=== PATIENT | female | born 1980 | race Caucasian/White ===

== ENCOUNTER 2016-09-28 00:53 | Emergency (ER) | payer OTHER ==
[~2016-09-28] VITALS: Ht 175.3 cm; Wt 117.1 kg
[~2016-09-28 00:53] MED LIST: BUPR-79 PO; GABA800T PO; IBUP-1451 PO; LAMO200T38 PO
[2016-09-28 00:56] VITALS: TEMP 37.1; Ht 175.3 cm; Wt 117.1 kg
[2016-09-28] MEDS ORDERED: PROPARACAINE HCL 0.5% OP SOLN 15 ML BTL ONE (01:00)
[2016-09-28] MEDS ORDERED: CIPROFLOXACIN HCL 0.3% OP SOLN 2.5 ML BTL OP STA (01:18)
--- NOTE | 2016-09-28 01:26 | EMERGENCY ROOM VISIT NOTE ---
ED Visit Note First contact with patient: 01:01 CHIEF COMPLAINT: Eye pain HISTORY OF PRESENT ILLNESS: This 35 yo patient presents to the emergency department with friend complaining of pain in the left eye. There has been a constant moderate pain and irritation, redness and tearing in the eye. There is a mild blurring of vision at times and light bothers the eye. The vision has not been decreased over all. The patient does not wear contacts. The patient rates the pain as irritating and 5/10. The patient has not had previous injuries to this eye. Tetanus shot is up to date. REVIEW OF SYSTEMS: A 6 system review of systems was completed with positives and pertinent negatives listed in the HPI. ALLERGIES: Codeine MEDICATIONS: Reviewed PMH: Medical Problems: (1) Antisocial personality disorder Status: Chronic (2) Bipolar disorder Status: Chronic (3) Cannabis abuse Status: Chronic (4) Chronic back pain Status: Chronic (5) Depression Status: Chronic (6) Hysterectomy Status: Resolved (7) Nicotine abuse Status: Chronic (8) orthopedic surgery Status: Resolved (9) Seizure Status: Chronic (10) Seizure disorder Status: Chronic SOCIAL HISTORY: No drug use PHYSICAL EXAM: Vital Signs: Reviewed Nurse's notes, vital signs stable. Visual acuity reviewed from nursing. GENERAL: This is a pleasant female, in no acute distress, but who is uncomfortable from the eye problem. Well-developed well- nourished. EYES: The pupils are equal round and reactive to light and accommodation. EOMs are full and without tenderness. There is discharge of clear tears from the left eye which is injected. There is no foreign body visible under the eyelid even after lid eversion. Funduscopic exam reveals no hemorrhages, papilledema, or other abnormalities. No foreign body was seen embedded in the cornea under slit lamp exam. The cornea was clear and no hyphema was seen. Fluorescein uptake was observed with ultraviolet light significant for a corneal abrasion 3:00. EMERGENCY DEPARTMENT COURSE: I examined the patient. Alcaine 2 drops were placed in the patient's left eye. A slit lamp exam was performed as above. Ciloxan two drops was placed in the patient's left eye. Patient was advised to follow-up with ophthalmology if symptoms persist or for worsening signs or symptoms the next few days or here in the ER sooner for worsening signs or symptoms or as needed. The patient was discharged home in good condition. DIAGNOSIS: Corneal abrasion of the left eye DISCHARGE INSTRUCTIONS AND TREATMENT: Use Ciloxin two drops in left eye every two hours while awake for two days; then two drops every four hours while awake for 5 days. Use Ibuprofen 600 mg or Tylenol 500 mg every 6 hrs as needed for moderate pain. Oxycodone (OxyIR) 5mg: Take 1-2 pills every four hours for breakthrough pain. Avoid alcohol, operating machinery or dangerous equipment, working on ladders or roofs, DRIVING, or situations where being under the influence may be dangerous. It is recommended to use an [id number] stool softener such as Colace, 100mg twice daily while taking this medication to avoid constipation. Follow-up with ophthalmology in 2-3 days for a recheck. Return to the ED for increasing pain or changes in vision. Problem List Medical Problems: (1) Antisocial personality disorder Status: Chronic (2) Bipolar disorder Status: Chronic (3) Cannabis abuse Status: Chronic (4) Chronic back pain Status: Chronic (5) Depression Status: Chronic (6) Hysterectomy Status: Resolved (7) Nicotine abuse Status: Chronic (8) orthopedic surgery Status: Resolved (9) Seizure Status: Chronic (10) Seizure disorder Status: Chronic Current/Historical Medications Scheduled Bupropion (Wellbutrin Sr), 150 MG PO QAM Gabapentin (Neurontin), 800 MG PO TID Ibuprofen Tab (Motrin), 800 MG PO TID Lamotrigine (Lamictal), 200 MG PO DAILY Allergies Coded Allergies: Codeine (Verified Allergy, Intermediate, COULDN'T BREATHE, FINGERS SWELL, 04/28/16) 01/20/13: has percocet in past without problem Vital Signs Date Time Temp Pulse Resp B/P Pulse Ox O2 Delivery O2 Flow Rate FiO2 09/28/16 00:56 37.1 95 18 130/93 97 Room Air Departure Information Referrals No Doctor, Assigned (PCP) Patient Instructions [facility]
[2016-09-28] MEDS ORDERED: OXYCODONE IR HOME PACK PO ONE (01:30)
[2016-09-28 01:39] VITALS: BP 124/89; PULSE 91; O2SAT 98
[2016-12-14] MEDS ORDERED: MTHL PO (09:51)
== END 2016-09-28 01:40 | disposition home or self-care (01) ==
LOC: C.EDB 00:54
DX: S05.02XA Injury of conjunctiva and corneal abrasion without foreign body, left eye, initial encounter (principal); X58.XXXA Exposure to other specified factors, initial encounter; G40.909 Epilepsy, unspecified, not intractable, without status epilepticus; F31.9 Bipolar disorder, unspecified; Z90.710 Acquired absence of both cervix and uterus; Z98.890 Other specified postprocedural states; Z79.899 Other long term (current) drug therapy

== ENCOUNTER 2016-11-05 09:23 | Emergency (ER) | payer OTHER ==
[~2016-11-05] VITALS: Ht 177.8 cm; Wt 121.1 kg
[2016-11-05 09:33] VITALS: TEMP 36.7; Ht 177.8 cm; Wt 121.1 kg
--- NOTE | 2016-11-05 09:47 | EMERGENCY ROOM VISIT NOTE ---
History Report prepared by Keshia: Fabian Zacarias Under the Supervision of: Dr. Herber Cortez M.D. First contact with patient: 09:38 Chief Complaint: ILLNESS Stated Complaint: BODY ACHES, DIZZY, CHILLS/SWEATS, LETHARGIC History of Present Illness The patient is a 35 year old female who presents to the Emergency Room with complaints of a persistent illness that started a week ago. The patient states that both herself and her started getting a similar illness at the same time. Her symptoms include tiredness, body aches, and a runny nose. Her thinks they may have Lyme Disease, as they do live in the [facility], but the patient thinks it probably is not Lyme Disease. The patient says that she has not felt this way since her stomach flu many years ago. She denies any fevers or abdominal pain. She did not get her flu shot, and she does smoke cigarettes. The patient says that she had a urinary tract infection recently but was not put on antibiotics. She takes ibuprofen for chronic back pain. Source of History: patient Onset: A week ago Position: other (global - illness) Timing: other (persistent) Associated Symptoms: + fatigue, No abdominal pain, No fevers Note: Associated symptoms: Body aches, runny nose. Review of Systems See HPI for pertinent positives & negatives. A total of 10 systems reviewed and were otherwise negative. Past Medical & Surgical Medical Problems: (1) Antisocial personality disorder (2) Bipolar disorder (3) Cannabis abuse (4) Chronic back pain (5) Depression (6) Hysterectomy (7) Nicotine abuse (8) orthopedic surgery (9) Seizure (10) Seizure disorder Family History FH: depression FH: suicide Social History Smoking Status: Current Every Day Smoker Alcohol Use: none Drug Use: heroin Marital Status: Housing Status: lives with family Occupation Status: employed Current/Historical Medications Scheduled Gabapentin (Neurontin), 800 MG PO TID Lamotrigine (Lamictal), 200 MG PO DAILY Methadone HCl (Methadone HCl), 43 MG PO DAILY Allergies Coded Allergies: Codeine (Verified Allergy, Intermediate, COULDN'T BREATHE, FINGERS SWELL, 11/05/16) 01/20/13: has percocet in past without problem Physical Exam Vital Signs Date Time Temp Pulse Resp B/P Pulse Ox O2 Delivery O2 Flow Rate FiO2 11/05/16 11:25 74 16 117/75 99 11/05/16 09:33 36.7 83 18 159/92 93 Room Air Physical Exam GENERAL: Patient is well appearing and in no acute distress. HEENT: No acute trauma, normocephalic atraumatic, mucous membranes moist, no nasal congestion, no scleral icterus. NECK: No stridor, no adenopathy, no meningismus, trachea is midline. LUNGS: No dyspnea. Clear to auscultation and equal bilaterally. No wheeze, no rhonchi. HEART: Regular rate and rhythm. No murmurs, rubs, gallops appreciated. ABDOMEN: Soft, nontender, bowel sounds positive, no masses appreciated, no peritonitis. BACK: No midline tenderness, no CVA tenderness EXTREMITIES: Normal motion all extremities, no cyanosis, no edema. NEUROLOGIC: Alert and oriented, no acute motor or sensory deficits, no focal weakness, cranial nerves grossly intact. SKIN: No rash, no jaundice, no diaphoresis. Medical Decision & Procedures Laboratory Results 11/05/16 09:50 Red Blood Count 4.58, Mean Corpuscular Volume 87.6, Mean Corpuscular Hemoglobin 29.0, Mean Corpuscular Hemoglobin Concent 33.2, Mean Platelet Volume 12.3, Neutrophils (%) (Auto) 64.2, Lymphocytes (%) (Auto) 23.8, Monocytes (%) (Auto) 6.8, Eosinophils (%) (Auto) 4.7, Basophils (%) (Auto) 0.2, Neutrophils # (Auto) 5.61, Lymphocytes # (Auto) 2.08, Monocytes # (Auto) 0.59, Eosinophils # (Auto) 0.41, Basophils # (Auto) 0.02 11/05/16 09:50 Test 11/05/16 09:50 White Blood Count 8.74 K/uL (4.8-10.8) Red Blood Count 4.58 M/uL (4.2-5.4) Hemoglobin 13.3 g/dL (12.0-16.0) Hematocrit 40.1 % (37-47) Mean Corpuscular Volume 87.6 fL (80-100) Mean Corpuscular Hemoglobin 29.0 pg (25-34) Mean Corpuscular Hemoglobin Concent 33.2 g/dl (32-36) Platelet Count 177 K/uL (130-400) Mean Platelet Volume 12.3 fL (7.4-10.4) Neutrophils (%) (Auto) 64.2 % Lymphocytes (%) (Auto) 23.8 % Monocytes (%) (Auto) 6.8 % Eosinophils (%) (Auto) 4.7 % Basophils (%) (Auto) 0.2 % Neutrophils # (Auto) 5.61 K/uL (1.4-6.5) Lymphocytes # (Auto) 2.08 K/uL (1.2-3.4) Monocytes # (Auto) 0.59 K/uL (0.11-0.59) Eosinophils # (Auto) 0.41 K/uL (0-0.5) Basophils # (Auto) 0.02 K/uL (0-0.2) RDW Standard Deviation 44.7 fL (36.4-46.3) RDW Coefficient of Variation 13.9 % (11.5-14.5) Immature Granulocyte % (Auto) 0.3 % Immature Granulocyte # (Auto) 0.03 K/uL (0.00-0.02) Urine Color YELLOW Urine Appearance CLEAR (CLEAR) Urine pH 8.0 (4.5-7.5) Urine Specific [place] 1.018 (1.000-1.030) Urine Protein NEG (NEG) Urine Glucose (UA) NEG (NEG) Urine Ketones NEG (NEG) Urine Occult Blood NEG (NEG) Urine Nitrite NEG (NEG) Urine Bilirubin NEG (NEG) Urine Urobilinogen NEG (NEG) Urine Leukocyte Esterase NEG (NEG) Urine WBC (Auto) 0 /hpf (0-5) Urine RBC (Auto) 0-4 /hpf (0-4) Urine Hyaline Casts (Auto) 0 /lpf (0-5) Urine Epithelial Cells (Auto) 5-10 /lpf (0-5) Urine Bacteria (Auto) NEG (NEG) Urine Test NEG (NEG) Anion Gap 9.0 mmol/L (3-11) Est Creatinine Clear Calc Drug Dose 146.9 ml/min Estimated GFR () 117.6 Estimated GFR (Non- 101.4 BUN/Creatinine Ratio 17.3 (10-20) Calcium Level 8.5 mg/dl (8.5-10.1) Lyme Disease IgG Antibody NEG (NEG) Lyme Disease IgM Antibody NEG (NEG) Laboratory results as reviewed by me. ED Course 0940: The patient was evaluated in room B2. A complete history and physical exam was performed. 1114: Reevaluated the patient and she is resting comfortably. Discussed results and discharge instructions: She verbalized understanding and agreement. The patient is ready for discharge. Medical Decision Differential: Sepsis, Infectious (UTI/Pneumonia/Meningitis/etc), Metabolic/ Electrolyte Abnormality, Cardiac, Hepatic, Endocrine, Toxicologic, Neurologic, amongst other pathologies entertained. 35 yr old female with multiple vague complaints arrives with primary issues of being concerned she has lyme disease. Symptoms much more consistent with flu- like illness. No meningitis by exam and she is not septic. Lyme negative (as is significant other's). Labs unremarkable and ua clear. She has significant other with identical symptoms. Discussed typical viral course and symptoms for which to monitor. Impression Primary Impression: Fatigue Additional Impression: Acute viral syndrome Scribe Attestation The scribe's documentation has been prepared under my direction and personally reviewed by me in its entirety. I confirm that the note above accurately reflects all work, treatment, procedures, and medical decision making performed by me. Departure Information Dispostion Home / Self-Care Referrals No Doctor, Assigned (PCP) Primary Care Provider Patient Instructions My [facility] Additional Instructions You have been examined and treated today on an emergency basis only. This is not a substitute for, or an effort to provide, complete comprehensive medical care. It is impossible to recognize and treat all injuries or illnesses in a single emergency department visit. It is therefore important that you follow up closely with your Primary Physician or [facility]. Call as soon as possible for an appointment so you can review all labs, imaging and other testing that you had. Return to Emergency Department, call 911 or seek immediate medical attention if you feel your symptoms are worsening. Problem Qualifiers Primary Impression: Fatigue Encounter type: initial encounter
[2016-11-05 10:17] LABS: BASO % 0.2 %; BASO ABS # 0.02 K/uL (0-0.2); COMPLETE YES; EOS % 4.7 %; HEMATOCRIT 40.1 % (37-47); IG% 0.3 %; LYMPH % 23.8 %; LYMPH ABS # 2.08 K/uL (1.2-3.4); MEAN CELL VOLUME 87.6 fL (80-100); MEAN CORPUSCULAR HGB CONC 33.2 g/dl (32-36); MEAN PLATELET VOLUME 12.3 fL (7.4-10.4); MONO % 6.8 %; NEUT % 64.2 %; PLATELET COUNT 177 K/uL (130-400); RED BLOOD COUNT 4.58 M/uL (4.2-5.4); WHITE BLOOD COUNT 8.74 K/uL (4.8-10.8)
[2016-11-05 10:25] LABS: URINE APPEARANCE CLEAR (CLEAR); URINE BILIRUBIN NEG (NEG); URINE COLOR YELLOW; URINE NITRITE NEG (NEG); URINE SPECIFIC GRAVITY 1.018 (1.000-1.030); UROBILINOGEN NEG (NEG); ZZUR CULT IF INDIC CLEAN CATCH NO
[2016-11-05 10:26] LABS: MANUAL MICROSCOPIC REQUIRED? NO; REVIEW REQ? NO
[2016-11-05 11:04] LABS: LYME DISEASE AB IGG NEG (NEG)
[2016-11-05 11:07] LABS: LYME DISEASE AB IGM NEG (NEG)
[2016-11-05 11:08] LABS: BUN/CREATININE RATIO 17.3 (10-20); CALCIUM 8.5 mg/dl (8.5-10.1); CREATININE 0.77 mg/dl (0.60-1.20); POTASSIUM 4.5 mmol/L (3.5-5.1)
[2016-11-05 11:25] VITALS: BP 117/75; PULSE 74; O2SAT 99
[2016-12-14] MEDS ORDERED: MTHL PO (09:51)
== END 2016-11-05 11:26 | disposition home or self-care (01) ==
LOC: C.EDB 09:26
DX: R53.83 Other fatigue (principal); B34.9 Viral infection, unspecified; F60.2 Antisocial personality disorder; F12.10 Cannabis abuse, uncomplicated; M54.9 Dorsalgia, unspecified; G89.29 Other chronic pain; F32.9 Major depressive disorder, single episode, unspecified; G40.909 Epilepsy, unspecified, not intractable, without status epilepticus; F17.210 Nicotine dependence, cigarettes, uncomplicated; Z79.899 Other long term (current) drug therapy

== ENCOUNTER → 2016-11-07 | Outpatient (CLI) | payer OTHER ==
[~2016-11-07] MED LIST changes: +AMOX875T PO; -BUPR-79 PO; +CEPH500C PO; +DOCU100C31 PO; +IBUP-1428 PO; -IBUP-1451 PO; +METH10SO PO; +MTHL PO; +ONDA8TAB62 SL; +OXYC-57 PO; +OXYC1TAB3 PO
--- NOTE | 2016-11-07 09:47 | DIAGNOSTIC IMAGING REPORT ---
RIGHT FOOT MIN 3 VIEWS ROUTINE CLINICAL HISTORY: M79.674 Pain of right great toe Right pain COMPARISON: None DISCUSSION: Moderate degenerative change first metatarsophalangeal joint. Interphalangeal joints otherwise are unremarkable. Subtalar joint appears to be intact. There is no significant heel spur. IMPRESSION: Moderate degenerative change first metatarsophalangeal joint. Otherwise negative study Electronically signed by: Rory Bowman M.D. 11/07/2016 9:45 AM Dictated Date/Time: 11/07/2016 9:45 AM
[2016-11-07 10:16] LABS: BASO % 0.3 %; BASO ABS # 0.02 K/uL (0-0.2); COMPLETE YES; EOS % 6.1 %; HEMATOCRIT 41.7 % (37-47); IG% 0.3 %; LYMPH % 24.4 %; LYMPH ABS # 1.69 K/uL (1.2-3.4); MEAN CELL VOLUME 88.3 fL (80-100); MEAN CORPUSCULAR HGB CONC 32.9 g/dl (32-36); MEAN PLATELET VOLUME 12.6 fL (7.4-10.4); MONO % 6.4 %; NEUT % 62.5 %; PLATELET COUNT 186 K/uL (130-400); RED BLOOD COUNT 4.72 M/uL (4.2-5.4); WHITE BLOOD COUNT 6.92 K/uL (4.8-10.8)
[2016-11-07 12:40] LABS: CALCIUM 9.1 mg/dl (8.5-10.1)
[2016-11-07 12:44] LABS: ALT/SGPT 31 U/L (12-78); BLOOD UREA NITROGEN 16 mg/dl (7-18); BUN/CREATININE RATIO 17.8 (10-20); CARBON DIOXIDE 28 mmol/L (21-32); CHLORIDE 105 mmol/L (98-107); CHOLESTEROL 191 mg/dl (0-200); CREATININE 0.89 mg/dl (0.60-1.20); GLUCOSE 91 mg/dl (70-99); POTASSIUM 4.3 mmol/L (3.5-5.1); SODIUM 139 mmol/L (136-145); TRIGLYCERIDES 67 mg/dl (0-150); URIC ACID 5.4 mg/dl (2.6-7.2); VERY LOW DENSITY LIPOPROT CALC 13 mg/dl
[2016-11-07 12:49] LABS: ALB/GLOB RATIO 1.1 (0.9-2); ALKALINE PHOSPHATASE 67 U/L (45-117); AST/SGOT 19 U/L (15-37); CHOLESTEROL/HDL RATIO 2.9; HDL CHOLESTEROL 67 mg/dl; LDL CHOLESTEROL CALCULATED 111 mg/dl
== END | disposition home or self-care (01) ==
LOC: C.LAB1850 09:14
PROVIDERS: ATTEND Physician Assistant
DX: Z00.00 Encounter for general adult medical examination without abnormal findings (principal); M79.674 Pain in right toe(s); M19.071 Primary osteoarthritis, right ankle and foot

== ENCOUNTER 2016-12-14 17:44 | Emergency (ER) | payer OTHER ==
[~2016-12-14] VITALS: Ht 177.8 cm; Wt 129.7 kg
[~2016-12-14 17:44] MED LIST changes: -AMOX875T PO; -CEPH500C PO; -DOCU100C31 PO; -IBUP-1428 PO; -METH10SO PO; -ONDA8TAB62 SL; -OXYC-57 PO; -OXYC1TAB3 PO
[2016-12-14 17:53] VITALS: BP 136/90; PULSE 94; TEMP 36.8; O2SAT 94; Ht 177.8 cm; Wt 129.7 kg
[2016-12-14] MEDS ORDERED: AMOX875T PO (18:06)
[2016-12-14] MEDS ORDERED: NORCO 5/325MG HOME PACK PO ONE (18:15)
[2016-12-14] MEDS ORDERED: AMOXICIL/CLAVU 875MG HOME PACK PO ONE (18:15)
--- NOTE | 2016-12-14 23:35 | EMERGENCY ROOM VISIT NOTE ---
ED Visit Note First contact with patient: 17:56 CHIEF COMPLAINT: Toothache HISTORY OF PRESENT ILLNESS: This 36 year old female patient presented to the emergency department with a progressive toothache for past 2 days after breaking a left upper molar. The pain is now steady and severe and radiates to the face. The patient does not yet a dentist appointment set up, but will be contacting her dentist on Friday after the hol. They rate their pain a 8/10 and the ibuprofen and Tylenol they have been taking has not relieved the pain. Denies facial swelling or fever. The patient denies any discharge from the mouth. REVIEW OF SYSTEMS: A 6 system review of systems was completed with positives and pertinent negatives listed in the HPI. ALLERGIES: Codeine, but does tolerate other narcotics MEDICATIONS: See EMR PMH: See EMR SOCIAL HISTORY: Lives locally PHYSICAL EXAM: Vitals are noted on the nurse's note and reviewed by myself. Vital signs stable. GENERAL: White female, in no acute distress, nondiaphoretic, well-developed well -nourished. Mouth: The left upper second molar fractured laterally and the gum is swollen and tender around it, without any discharge or signs of an abscess. The remainder of the pharynx and tonsils are without erythema, edema, or exudate. The airway is patent. There is no facial swelling, cervical or submandibular lymphadenopathy. The patient appears uncomfortable and in pain. The patient has overall fair dental hygiene. EARS: External auditory canals clear, tympanic membranes pearly hayes without erythema or effusion bilaterally. HEART: Regular rate and rhythm without murmur gallop or rub LUNG: Clear to auscultation bilateral ED COURSE: Physical exam and history were performed. Nursing notes and EMR were reviewed. The patient appears to have broken a tooth a few days ago, and has had slow and progressive pain around her gum and of the tooth. On examination the gum line is erythematous and edematous without obvious abscess. There is no airway concerns. The patient will be given a course of Augmentin and a home pack of Vicodin. She is confident that she can establish with her dentist after the hol, and I recommended that she perform this. The patient was otherwise invited back to the ER with any new, worsening , or concerning symptoms. Problem List Medical Problems: (1) Antisocial personality disorder Status: Chronic (2) Bipolar disorder Status: Chronic (3) Cannabis abuse Status: Chronic (4) Chronic back pain Status: Chronic (5) Depression Status: Chronic (6) Hysterectomy Status: Resolved (7) Nicotine abuse Status: Chronic (8) orthopedic surgery Status: Resolved (9) Seizure Status: Chronic (10) Seizure disorder Status: Chronic Current/Historical Medications Scheduled Amoxicillin & Pot Clavulanate (Augmentin 875-125 mg), 1 TAB PO BID Gabapentin (Neurontin), 800 MG PO TID Lamotrigine (Lamictal), 200 MG PO DAILY Methadone HCl (Methadone HCl), 20 MG PO DAILY Allergies Coded Allergies: Codeine (Verified Allergy, Intermediate, COULDN'T BREATHE, FINGERS SWELL, 11/05/16) 01/20/13: has percocet in past without problem Vital Signs Date Time Temp Pulse Resp B/P Pulse Ox O2 Delivery O2 Flow Rate FiO2 12/14/16 17:53 36.8 94 20 136/90 94 Room Air Medications Administered Medications (Trade) Dose Ordered Sig/[place] Route Start Time Stop Time Status Last Admin Dose Admin Amoxicillin/ Clavulanate Potassium (Augmentin 875MG Home Pack) 1 homepack UD ONCE PO 12/14/16 18:15 12/14/16 18:16 DC 12/14/16 18:15 1 HOMEPACK Acetaminophen/ Hydrocodone Bitart ([place] 5/325mg Home Pack) 1 homepack UD ONCE PO 12/14/16 18:15 12/14/16 18:16 DC 12/14/16 18:15 1 HOMEPACK Departure Information Impression Primary Impression: Broken tooth Dispostion Home / Self-Care Condition GOOD Prescriptions Amoxicillin & Pot Clavulanate (Augmentin 875-125 mg) 1 Tab Tab 1 TAB PO BID for 9 Days, #18 TAB Prov: Jamel Dubois PA-C 12/14/16 Forms HOME CARE DOCUMENTATION FORM, IMPORTANT VISIT INFORMATION Patient Instructions My [facility] Additional Instructions You were seen and evaluated today on an emergency basis only. This is not a substitute for, or an effort to provide, complete comprehensive medical care. It is not possible to recognize and treat all injuries or illnesses in a single emergency department visit. For this reason it is recommended that you followup with your dentist as soon as possible for definitive care. For baseline pain relief you may alternate ibuprofen and acetaminophen every 4 hours for pain control. Take 600 mg ibuprofen (Advil) and then 4 hours later take 1000 mg acetaminophen (Tylenol). Do not take more than 3000 mg acetaminophen in a single day. [place] (hydrocodone/acetaminophen) 5/325 mg (homepack) One pill by mouth every 6 hours as needed for worsening breakthrough pain. Do not drink or drive on [place]. This medication will likely make you tired. Do not take [place] and Tylenol at the same time as both contain acetaminophen. [place] may cause constipation. You may wish to take an [id number] stool softener like Colace if this occurs. Amoxicillin Clavulanate (Augmentin) 875mg: Take one pill twice daily for 10 total days for your infection. All antibiotics can cause diarrhea. If this occurs and you feel worse or it does not resolve in 1-2 days follow up with your doctor or return to the Emergency Department as this could be signs of serious underlying problems. Any medication can cause an allergic reaction, stop the pills immediately and return to the ER for rash, hives, breathing difficulties, or swelling. You are welcome to return to the emergency department anytime with new, worsening, or concerning symptoms.
== END 2016-12-14 18:23 | disposition home or self-care (01) ==
LOC: C.EDB 17:46 → C.EDD 18:23
DX: S02.5XXA Fracture of tooth (traumatic), initial encounter for closed fracture (principal); X58.XXXA Exposure to other specified factors, initial encounter; F60.2 Antisocial personality disorder; F31.9 Bipolar disorder, unspecified; F12.10 Cannabis abuse, uncomplicated; G89.29 Other chronic pain; M54.9 Dorsalgia, unspecified; F32.9 Major depressive disorder, single episode, unspecified; F17.200 Nicotine dependence, unspecified, uncomplicated; G40.909 Epilepsy, unspecified, not intractable, without status epilepticus; Z90.710 Acquired absence of both cervix and uterus

== ENCOUNTER 2017-02-06 16:33 | Emergency (ER) | payer OTHER ==
[~2017-02-06] VITALS: Ht 170.2 cm; Wt 116.0 kg
[~2017-02-06 16:33] MED LIST changes: -GABA800T PO; -LAMO200T38 PO
[2017-02-06 16:35] VITALS: TEMP 36.8; Ht 170.2 cm; Wt 116.0 kg
[2017-02-06] MEDS ORDERED: SODIUM CHLORIDE 0.9% 1000ML 1,000 ML IV ONE (16:57)
[2017-02-06] MEDS ORDERED: SODIUM CHLORIDE 0.9% 1000ML 1,000 ML IV STA (16:57)
--- NOTE | 2017-02-06 16:59 | EMERGENCY ROOM VISIT NOTE ---
History Report prepared by Keshia: Fabian Zacarias Under the Supervision of: Dr. Galen Robertson M.D. First contact with patient: 16:44 Chief Complaint: CONSTIPATION Stated Complaint: NO BM IN 2 WKS,STOMACH PAIN,NAUSEA,CANT URINATE Nursing Triage Summary: pt to the ED with 2 wk hx of not having a BM and a couple days ago could void fully. pt used a suppository yesterday had a Bm and can void fine now today History of Present Illness The patient is a 36 year old female who presents to the Emergency Room with complaints of persistent constipation that started 2 weeks ago. She says that several weeks, she started having a decreased appetite with abdominal fullness. The patient states that she has not eaten as much as usual for these last few weeks. She says that she then noticed that she hadn't had a bowel movement in a while, which is not too uncommon, as she is on Methadone, but she has never had anything this long before without a bowel movement. She notes that she typically has a bowel movement a few times per week. The patient's adds that the patient, yesterday morning, was unable to urinate, and was limping with low abdominal pain. The patient notes that she felt like the food was not digesting, and was instead sitting in her lower abdomen. She says that the pain was cramping and similar to bad period cramps. The patient states that she used a suppository a few hours later and was then able to have a bowel movement with a couple rock hard pieces, and immediately began to urinate. She adds that she has been having bilateral flank pain that radiates down into her vaginal area. The patient says she has not had any urinary symptoms today. She denies any new back pain, shortness of breath, cough, headaches, hematuria, leg pain, numbness , or weakness. The patient says that she just had her period a few days ago, which was not abnormal for her. Source of History: patient, spouse/significant other Onset: 2 weeks ago Position: other (global - constipation) Symptom Intensity: only 1 bowel movement in past 2 weeks Timing: other (persistent) Associated Symptoms: + abdominal pain (low), + urinary symptoms (yesterday, inability to urinate before having bowel movement), No headache, No cough, No SOB, No back pain (no new), No weakness, No numbness Note: Associated symptoms: Decreased appetite with abdominal fullness, flank pain, vaginal area pain. Denies leg pain or hematuria. Review of Systems See HPI for pertinent positives & negatives. A total of 10 systems reviewed and were otherwise negative. Past Medical & Surgical Medical Problems: (1) Antisocial personality disorder (2) Bipolar disorder (3) Cannabis abuse (4) Chronic back pain (5) Depression (6) Hysterectomy (7) Nicotine abuse (8) orthopedic surgery (9) Seizure (10) Seizure disorder Old medical records were reviewed. Nurse's notes were reviewed and I agree with. Family History FH: depression FH: suicide Social History Smoking Status: Current Every Day Smoker Alcohol Use: none Drug Use: heroin Marital Status: Housing Status: lives with family Occupation Status: employed Current/Historical Medications Scheduled Gabapentin (Neurontin), 800 MG PO TID Lamotrigine (Lamictal), 200 MG PO DAILY Methadone Hcl (Methadone Hcl), 63 MG PO DAILY Allergies Coded Allergies: Codeine (Verified Allergy, Intermediate, COULDN'T BREATHE, FINGERS SWELL, 11/05/16) 01/20/13: has percocet in past without problem Physical Exam Vital Signs Date Time Temp Pulse Resp B/P (MAP) Pulse Ox O2 Delivery O2 Flow Rate FiO2 02/06/17 18:55 76 18 126/87 98 Room Air 02/06/17 17:47 76 18 117/68 98 Room Air 02/06/17 16:35 36.8 101 16 120/77 95 Room Air Physical Exam General: Well developed well nourished non ill appearing young female in no acute distress, breathing comfortably on room air. Normal speech HEENT: Normal cephalic atraumatic. Pupils are equal round and reactive to light. Extraocular movements are intact. Oropharynx is pink with moist mucous membranes. No swelling of the mouth lips or tongue. Neck: Supple with a midline trachea. No meningeal signs or stiffness, no JVD or bruits. No Stridor. Chest: Clear to auscultation bilaterally. No wheezes or rhonchi. No increased work of breathing. Heart: regular rate and rhythm. Abdomen: Soft nontender, nondistended without rebound guarding or rigidity. She has some fullness and a possible palpable mass the lower abdomen/pelvis Extremities: No cyanosis clubbing or edema. No calf tenderness or assymetry. Normal motor and sensation in legs, no numbness in buttocks. Spine/Back. Non tender to palpation. No CVA tenderness Skin: Good turgor without rashes. Neurologic exam: Cranial nerves two through 12 are intact. Motor and sensation are intact and symmetrical throughout. Medical Decision & Procedures ER Provider Diagnostic Interpretation: CT results as stated below per my review and radiologist interpretation: ABD/PELVIS WITHOUT FOR STONE CT DOSE: 1588.78 mGy.cm HISTORY: Pain obstruction. Constipation. TECHNIQUE: Multiaxial CT images of the abdomen and pelvis were performed without the use of intravenous and oral contrast according to the standard department stone protocol. A dose lowering technique was utilized adhering to the principles of ALARA. COMPARISON STUDY: None. FINDINGS: Lung bases are clear. Liver spleen and pancreas appear unremarkable. Kidneys negative for hydronephrosis. There are no renal calcifications. The upper abdominal bowel pattern is considered nonobstructive. There is a large complex primarily cystic mass of the soft tissue pelvis. This contains a fat component as well as left lateral aspect measuring 4.5 x 2.5 cm. Several calcifications are present within this fat-containing nodule. There is a large immediately adjacent cystic component measuring 10 x 11 cm. Several internal septations are noted. This is incorrect contact with the fat and calcified components of the mass. It compresses of the bladder. Uterus appears to be midline. Diagnostic considerations include a cystic dermoid. Hemostasis likely possibility would be a cystic ovarian neoplasm with a small adjacent MRI. There is trace amount of free fluid within the pelvic cul-de-sac. There is no significant bowel component. This again presumably is ovarian torsion. IMPRESSION: 1. Large complex primarily cystic mass occupying the bulk of the low central pelvis. 2. The cystic component measures 10 x 11 cm, with the immediately adjacent fat and calcified component measuring 4.5 cm. 3. Small amount of free fluid within the pelvic cul-de-sac. 4. Diagnostic considerations primarily include a cystic ovarian dermoid/teratoma, with an ovarian neoplastic process less likely. 5. 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 The above report was generated using voice recognition software. It may contain grammatical, syntax or spelling errors. Electronically signed by: Rory Bowman M.D. 02/06/2017 5:53 PM Dictated Date/Time: 02/06/2017 5:35 PM Laboratory Results 02/06/17 17:08 Red Blood Count 4.54, Mean Corpuscular Volume 87.0, Mean Corpuscular Hemoglobin 28.9, Mean Corpuscular Hemoglobin Concent 33.2, Mean Platelet Volume 12.2, Neutrophils (%) (Auto) 50.7, Lymphocytes (%) (Auto) 42.3, Monocytes (%) (Auto) 6.3, Eosinophils (%) (Auto) 0.3, Basophils (%) (Auto) 0.2, Neutrophils # (Auto) 3.21, Lymphocytes # (Auto) 2.68, Monocytes # (Auto) 0.40, Eosinophils # (Auto) 0.02, Basophils # (Auto) 0.01 02/06/17 17:08 Test 02/06/17 17:08 02/06/17 17:50 White Blood Count 6.33 K/uL (4.8-10.8) Red Blood Count 4.54 M/uL (4.2-5.4) Hemoglobin 13.1 g/dL (12.0-16.0) Hematocrit 39.5 % (37-47) Mean Corpuscular Volume 87.0 fL (80-100) Mean Corpuscular Hemoglobin 28.9 pg (25-34) Mean Corpuscular Hemoglobin Concent 33.2 g/dl (32-36) Platelet Count 173 K/uL (130-400) Mean Platelet Volume 12.2 fL (7.4-10.4) Neutrophils (%) (Auto) 50.7 % Lymphocytes (%) (Auto) 42.3 % Monocytes (%) (Auto) 6.3 % Eosinophils (%) (Auto) 0.3 % Basophils (%) (Auto) 0.2 % Neutrophils # (Auto) 3.21 K/uL (1.4-6.5) Lymphocytes # (Auto) 2.68 K/uL (1.2-3.4) Monocytes # (Auto) 0.40 K/uL (0.11-0.59) Eosinophils # (Auto) 0.02 K/uL (0-0.5) Basophils # (Auto) 0.01 K/uL (0-0.2) RDW Standard Deviation 42.4 fL (36.4-46.3) RDW Coefficient of Variation 13.3 % (11.5-14.5) Immature Granulocyte % (Auto) 0.2 % Immature Granulocyte # (Auto) 0.01 K/uL (0.00-0.02) Anion Gap 6.0 mmol/L (3-11) Est Creatinine Clear Calc Drug Dose 106.5 ml/min Estimated GFR () 87.2 Estimated GFR (Non- 75.3 BUN/Creatinine Ratio 9.2 (10-20) Calcium Level 8.9 mg/dl (8.5-10.1) Total Bilirubin 0.3 mg/dl (0.2-1) Direct Bilirubin < 0.1 mg/dl (0-0.2) Aspartate Amino Transf (AST/SGOT) 15 U/L (15-37) Alanine Aminotransferase (ALT/SGPT) 21 U/L (12-78) Alkaline Phosphatase 57 U/L (45-117) Total Protein 6.9 gm/dl (6.4-8.2) Albumin 3.7 gm/dl (3.4-5.0) Lipase 75 U/L (73-393) Human Chorionic Gonadotropin, Qual NEG (NEG) Urine Color YELLOW Urine Appearance CLEAR (CLEAR) Urine pH 5.0 (4.5-7.5) Urine Specific Harmony 1.028 (1.000-1.030) Urine Protein NEG (NEG) Urine Glucose (UA) NEG (NEG) Urine Ketones TRACE (NEG) Urine Occult Blood NEG (NEG) Urine Nitrite NEG (NEG) Urine Bilirubin NEG (NEG) Urine Urobilinogen NEG (NEG) Urine Leukocyte Esterase NEG (NEG) Laboratory studies as stated above per my review. Medications Administered Medications (Trade) Dose Ordered Sig/Landen Route Start Time Stop Time Status Last Admin Dose Admin Sodium Chloride 1,000 ml @ 999 mls/hr Q1H1M STAT IV 02/06/17 16:57 02/06/17 17:57 DC 02/06/17 17:21 999 MLS/HR ED Course 1646: Past medical records reviewed. The patient was evaluated in room C8, and a complete history and physical examination were performed. 1656: Ordered NSS 1000 ml @ 150 mls/hr IV, NSS 1000 ml @ 999 mls/hr IV. 1810: I was notified that the patient has a history of a teratoma. 1812: I discussed the patient with Dr. Bryant - [facility] - she says the patient will get followed up in office. 1833: I reevaluated the patient, and performed a rectal exam. She has good rectal tone and scant stool. The patient verbally expressed understanding and agreement of the treatment plan. The patient will be discharged. Medical Decision Differentials include, but are not limited to; constipation, bowel obstruction, Cauda Equina syndrome, electrolyte or metabolic abnormality. This patient comes in as described above. She's had constipation and intermittent lower abdominal pain. She had a small hard bowel movement yesterday and then was able urinate fine afterwards. She has no numbness in her legs or buttocks. She looks well on exam and she has some tenderness in lower abdomen. IV access was established blood work was obtained. I did a bladder scan as well as CAT scan of her abdomen and pelvis. She was reassessed frequently. She has a normal rectal exam and normal tone and nothing to suggest cauda equina syndrome on exam. She has no acute electrolyte or metabolic abnormality. She is not . I did a CAT scan or abdomen pelvis and she has a large cystic mass in her abdomen as think this is likely causing her symptoms. In fact I can palpate this on her lower abdominal exam. The patient has had a dermoid cyst removed years ago and they also remove her right ovary. This most likely is another dermoid cyst. I did discuss her Apk and they will call her tomorrow to arrange close follow-up. I do think the patient can go home, she agrees and would like to go home. She can use ibuprofen and/or Tylenol rest and drink plenty of fluids. Use a stool softener and return if: increasing pain, worsening of symptoms, fever or chills, any new problems or concerns. The patient and were happy with plan and she was discharged to home. Medication Reconcilliation Current Medication List: was personally reviewed by me Blood Pressure Screening Patient's blood pressure: Normal blood pressure Consults Time Called: 1810 Consulting Physician: Dr. Annette [facility]PP[facility] Returned Call: 1812 I discussed the patient with Dr. Annette [facility]PPER [facility] - she says the patient will get followed up in office. Impression Primary Impression: Ovarian teratoma Additional Impressions: Pelvic pain Constipation Scribe Attestation The scribe's documentation has been prepared under my direction and personally reviewed by me in its entirety. I confirm that the note above accurately reflects all work, treatment, procedures, and medical decision making performed by me. Departure Information Dispostion Home / Self-Care Referrals No Doctor, Assigned (PCP) Forms HOME CARE DOCUMENTATION FORM, IMPORTANT VISIT INFORMATION Patient Instructions [facility] Additional Instructions Rest. Drink plenty of fluids. Use stool softeners or suppository or MiraLAX For pain, Use [id number] Tylenol and/or ibuprofen but do not exceed the [id number] dosing regimens Follow-up with Dr. Noonan. His office will call you tomorrow and you will ultimately need surgery for your ovarian mass/cyst Problem Qualifiers Primary Impression: Ovarian teratoma Laterality: unspecified laterality Qualified Codes: D27.9 - Benign neoplasm of unspecified ovary Additional Impressions: Constipation Constipation type: unspecified constipation type Qualified Codes: K59.00 - Constipation, unspecified
[2017-02-06] MEDS ORDERED: METH10SO PO (17:08)
[2017-02-06 17:26] LABS: BASO % 0.2 %; BASO ABS # 0.01 K/uL (0-0.2); COMPLETE YES; EOS % 0.3 %; HEMATOCRIT 39.5 % (37-47); IG% 0.2 %; LYMPH % 42.3 %; LYMPH ABS # 2.68 K/uL (1.2-3.4); MEAN CORPUSCULAR HEMOGLOBIN 28.9 pg (25-34); MEAN CORPUSCULAR HGB CONC 33.2 g/dl (32-36); MEAN PLATELET VOLUME 12.2 fL (7.4-10.4); MONO % 6.3 %; NEUT % 50.7 %; PLATELET COUNT 173 K/uL (130-400); RED BLOOD COUNT 4.54 M/uL (4.2-5.4); WHITE BLOOD COUNT 6.33 K/uL (4.8-10.8)
[2017-02-06 17:34] LABS: ALT/SGPT 21 U/L (12-78); BLOOD UREA NITROGEN 9 mg/dl (7-18); BUN/CREATININE RATIO 9.2 (10-20); CALCIUM 8.9 mg/dl (8.5-10.1); CARBON DIOXIDE 25 mmol/L (21-32); CHLORIDE 108 mmol/L (98-107); CREATININE 0.98 mg/dl (0.60-1.20); GLUCOSE 78 mg/dl (70-99); POTASSIUM 3.7 mmol/L (3.5-5.1); SODIUM 139 mmol/L (136-145)
[2017-02-06 17:37] LABS: ALKALINE PHOSPHATASE 57 U/L (45-117); AST/SGOT 15 U/L (15-37)
[2017-02-06 17:53] LABS: PREG INTERNAL NEGATIVE QC NEG CLEAR BACKGROUND; PREG INTERNAL POSITIVE QC POS CONTROL LINE
--- NOTE | 2017-02-06 17:54 | DIAGNOSTIC IMAGING REPORT ---
ABD/PELVIS WITHOUT FOR STONE CT DOSE: 1588.78 mGy.cm HISTORY: Pain obstruction. Constipation. TECHNIQUE: Multiaxial CT images of the abdomen and pelvis were performed without the use of intravenous and oral contrast according to the standard department stone protocol. A dose lowering technique was utilized adhering to the principles of ALARA. COMPARISON STUDY: None. FINDINGS: Lung bases are clear. Liver spleen and pancreas appear unremarkable. Kidneys negative for hydronephrosis. There are no renal calcifications. The upper abdominal bowel pattern is considered nonobstructive. There is a large complex primarily cystic mass of the soft tissue pelvis. This contains a fat component as well as left lateral aspect measuring 4.5 x 2.5 cm. Several calcifications are present within this fat-containing nodule. There is a large immediately adjacent cystic component measuring 10 x 11 cm. Several internal septations are noted. This is incorrect contact with the fat and calcified components of the mass. It compresses of the bladder. Uterus appears to be midline. Diagnostic considerations include a cystic dermoid. Hemostasis likely possibility would be a cystic ovarian neoplasm with a small adjacent MRI. There is trace amount of free fluid within the pelvic cul-de-sac. There is no significant bowel component. This again presumably is ovarian torsion. IMPRESSION: 1. Large complex primarily cystic mass occupying the bulk of the low central pelvis. 2. The cystic component measures 10 x 11 cm, with the immediately adjacent fat and calcified component measuring 4.5 cm. 3. Small amount of free fluid within the pelvic cul-de-sac. 4. Diagnostic considerations primarily include a cystic ovarian dermoid/teratoma, with an ovarian neoplastic process less likely. 5. 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 The above report was generated using voice recognition software. It may contain grammatical, syntax or spelling errors. Electronically signed by: Rory Bowman M.D. 02/06/2017 5:53 PM Dictated Date/Time: 02/06/2017 5:35 PM
[2017-02-06 18:05] LABS: URINE APPEARANCE CLEAR (CLEAR); URINE BILIRUBIN NEG (NEG); URINE COLOR YELLOW; URINE NITRITE NEG (NEG); URINE SPECIFIC GRAVITY 1.028 (1.000-1.030); UROBILINOGEN NEG (NEG)
[2017-02-06 18:23] LABS: MANUAL MICROSCOPIC REQUIRED? NO; REVIEW REQ? NO
[2017-02-06] MEDS ORDERED: GABA800T PO (18:23)
[2017-02-06] MEDS ORDERED: LAMO200T38 PO (18:23)
[2017-02-06 18:55] VITALS: BP 126/87; PULSE 76; O2SAT 98
== END 2017-02-06 18:56 | disposition home or self-care (01) ==
LOC: C.EDB 16:35 → C.EDC 18:56
DX: D27.9 Benign neoplasm of unspecified ovary (principal); R10.2 Pelvic and perineal pain; K59.00 Constipation, unspecified; F60.2 Antisocial personality disorder; F31.9 Bipolar disorder, unspecified; F12.90 Cannabis use, unspecified, uncomplicated; F32.9 Major depressive disorder, single episode, unspecified; R56.9 Unspecified convulsions; F17.200 Nicotine dependence, unspecified, uncomplicated; F11.90 Opioid use, unspecified, uncomplicated

== ENCOUNTER 2017-04-15 17:27 | Emergency (ER) | payer OTHER ==
[~2017-04-15] VITALS: Ht 177.8 cm; Wt 107.6 kg
[~2017-04-15 17:27] MED LIST changes: +GABA800T PO; +LAMO200T38 PO; +METH10SO PO; -MTHL PO
[2017-04-15 17:35] VITALS: BP 110/68; PULSE 94; TEMP 37.3; O2SAT 96; Ht 177.8 cm; Wt 107.6 kg
[2017-04-15] MEDS ORDERED: OXYC1TAB3 PO (19:07)
[2017-04-15] MEDS ORDERED: IBUP-1428 PO (19:08)
[2017-04-15] MEDS ORDERED: ONDA8TAB62 SL (19:09)
[2017-04-15] MEDS ORDERED: DOCU100C31 PO (19:09)
[2017-04-16] MEDS ORDERED: CEPH500C PO (13:20)
[2017-04-16] MEDS ORDERED: OXYC-57 PO (13:33)
== END 2017-04-15 17:49 | disposition left against medical advice (07) ==
LOC: C.EDB 17:32
DX: R52 Pain, unspecified (principal)

== ENCOUNTER 2017-04-16 09:12 | Emergency (ER) | payer OTHER ==
[~2017-04-16] VITALS: Ht 177.8 cm; Wt 108.0 kg
[~2017-04-16 09:12] MED LIST changes: +DOCU100C31 PO; +IBUP-1428 PO; +ONDA8TAB62 SL; +OXYC1TAB3 PO
[2017-04-16 09:14] VITALS: Ht 177.8 cm; Wt 108.0 kg
[2017-04-16 10:01] LABS: URINE APPEARANCE CLEAR (CLEAR); URINE BILIRUBIN NEG (NEG); URINE COLOR YELLOW; URINE EPITHELIAL CELL AUTO >30 /lpf (0-5); URINE NITRITE NEG (NEG); URINE PH 7.5 (4.5-7.5); URINE SPECIFIC GRAVITY 1.022 (1.000-1.030); UROBILINOGEN NEG (NEG); ZZUR CULT IF INDIC CLEAN CATCH YES
[2017-04-16 10:24] LABS: BASO % 0.1 %; BASO ABS # 0.01 K/uL (0-0.2); COMPLETE YES; HEMATOCRIT 36.7 % (37-47); IG% 0.3 %; LYMPH ABS # 1.99 K/uL (1.2-3.4); MEAN CELL VOLUME 89.3 fL (80-100); MEAN CORPUSCULAR HEMOGLOBIN 29.2 pg (25-34); MEAN CORPUSCULAR HGB CONC 32.7 g/dl (32-36); MEAN PLATELET VOLUME 11.7 fL (7.4-10.4); MONO % 6.6 %; PLATELET COUNT 218 K/uL (130-400); RED BLOOD COUNT 4.11 M/uL (4.2-5.4); WHITE BLOOD COUNT 8.67 K/uL (4.8-10.8)
[2017-04-16 10:30] LABS: MANUAL MICROSCOPIC REQUIRED? NO; REVIEW REQ? YES
[2017-04-16 10:40] LABS: BUN/CREATININE RATIO 15.1 (10-20); CALCIUM 8.7 mg/dl (8.5-10.1); CREATININE 0.77 mg/dl (0.60-1.20); POTASSIUM 4.4 mmol/L (3.5-5.1)
[2017-04-16] MEDS ORDERED: OPTIRAY 320 IV PRN (11:00)
[2017-04-16] MEDS ORDERED: AMPICILLIN/SULBACTAM SOD INJ 3,000 MG in SODIUM CHLORIDE 0.9% 100ML 100 ML IV ONE (11:00)
--- NOTE | 2017-04-16 11:42 | DIAGNOSTIC IMAGING REPORT ---
CT ABD/PELVIS IV CONTRAST ONLY CLINICAL HISTORY: Abdominal wall cellulitis status post left oophorectomy. Evaluate for abscess. COMPARISON STUDY: 02/06/2017 TECHNIQUE: Following the IV administration of 93 mL of Optiray-320, CT scan of the abdomen and pelvis was performed from the lung bases to the proximal femurs. Images are reviewed in the axial, sagittal, and coronal planes. IV contrast was administered without complication. A dose lowering technique was utilized adhering to the principles of ALARA. CT DOSE: 969.93 mGycm FINDINGS: Lower chest: The heart is normal in size and configuration, without pericardial effusion. The lung bases and pleural spaces are clear. Liver: The contrast-enhanced liver is normal in size, contour, and attenuation. There is no intrahepatic biliary ductal dilatation. The hepatic veins and portal veins are patent. Gallbladder: Unremarkable. Spleen: Normal in size and attenuation. Pancreas: Unremarkable. Adrenal glands: Unremarkable. Kidneys: There are multiple right renal cortical scars. No solid renal masses are visualized. There is no hydronephrosis. Bowel: There are no transition zones to indicate bowel obstruction. There is no acute diverticulitis. There is no acute appendicitis. Peritoneum: There is a small amount of free pelvic fluid. Vasculature: The abdominal aorta is normal in course and caliber. Adenopathy: None. Pelvic viscera: The bladder, and pelvic viscera are unremarkable. Skeletal structures: There is diffuse cutaneous and subcutaneous edema within the anterior abdominal wall consistent with the clinical history of cellulitis. There is fluid anterior to the left rectus sheath measuring 5.5 cm transversely. There is no enhancing rim to indicate an abscess. There is a 3 cm soft tissue density abutting the posterior aspect of the right rectus sheath. This likely represents a postsurgical hematoma. There are small gas bubbles located anterior to the bladder and abutting the posterior aspect of the inferior rectus sheath. These are likely extraperitoneal and likely relate to recent surgery. IMPRESSION: 1. Skin thickening and edema involving the anterior abdominal wall consistent with a clinical history of cellulitis 2. Fluid collection abutting the anterior aspect of the left rectus sheath. It is not possible to determine whether this is infected. There is no enhancing rim to indicate a definite abscess 3. 3 cm soft tissue density abutting the posterior aspect of the right rectus sheath. This likely represents a postsurgical hematoma 4. Small gas bubbles anterior to the bladder and abutting the posterior aspect of the inferior rectus sheath. These are likely extraperitoneal and likely relate to recent surgery 5. No evidence of intraperitoneal abscess 6. Multifocal right renal cortical scars 7. Small amount of free fluid in the pelvis Electronically signed by: Emory Lambert M.D. 04/16/2017 11:41 AM Dictated Date/Time: 04/16/2017 11:32 AM
[2017-04-16] MEDS ORDERED: CEPH500C PO (13:20)
[2017-04-16] MEDS ORDERED: OXYC-57 PO (13:33)
--- NOTE | 2017-04-16 13:36 | EMERGENCY ROOM VISIT NOTE ---
History Report prepared by Keshia: Alfredo Lala Under the Supervision of: Dr. Chapincito Sena D.O. 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 Incisional pain is getting worse, "internal pain", swelling. Sent by surgeon in [place]. Sx x 2-3 days. History of Present Illness The patient is a 36 year old female who presents to the Emergency Room with complaints of a worsening wound infection for the past couple of days on her lower abdomen. 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 She states that she had some normal post-op pain, and then a few days ago she started to have some sharp pain in her abdomen around the area, and she has been having swelling and redness. She additionally states that she is very itchy around the incision site, and she states that she had a fever yesterday. She denies any nausea or vomiting. Source of History: patient Onset: past couple of days Position: abdomen Quality: other (wound infection) Timing: worsening Associated Symptoms: + abdominal pain, No nausea, No vomiting Note: Associated symptoms: redness, swelling, itchiness Review of Systems See HPI for pertinent positives & negatives. A total of 10 systems reviewed and were otherwise negative. Past Medical & Surgical Medical Problems: (1) Antisocial personality disorder (2) Bipolar disorder (3) Cannabis abuse (4) Chronic back pain (5) Depression (6) Hysterectomy (7) Nicotine abuse (8) orthopedic surgery (9) Seizure (10) Seizure disorder Family History FH: depression FH: suicide Social History Smoking Status: Current Every Day Smoker Alcohol Use: none Drug Use: heroin Marital Status: Housing Status: lives with family Occupation Status: employed Current/Historical Medications Scheduled Cephalexin Monohydrate (Keflex), 500 MG PO QID Gabapentin (Neurontin), 800 MG PO TID Lamotrigine (Lamictal), 200 MG PO DAILY Methadone Hcl (Methadone Hcl), 63 MG PO DAILY Scheduled PRN Oxycodone/Acetaminophen 5MG/325MG (Percocet 5MG/325MG), 1 TAB PO Q6H PRN for Pain Allergies Coded Allergies: Codeine (Verified Allergy, Intermediate, COULDN'T BREATHE, FINGERS SWELL, 11/05/16) 01/20/13: has percocet in past without problem Physical Exam Vital Signs Date Time Temp Pulse Resp B/P (MAP) Pulse Ox O2 Delivery O2 Flow Rate FiO2 04/16/17 13:26 66 18 107/68 100 Room Air 04/16/17 12:35 71 18 121/81 96 Room Air 04/16/17 09:14 36.8 73 18 129/81 96 Room Air Physical Exam CONSTITUTIONAL/VITAL SIGNS: Reviewed / noted above. GENERAL: Non-toxic in appearance. INTEGUMENTARY: Warm, dry, and [place]. HEAD: Normocephalic. EYES: without scleral icterus or trauma. ENT/OROPHARYNX: clear and moist. LYMPHADENOPATHY/NECK: Is supple without lymphadenopathy or meningismus. RESPIRATORY: Lungs clear and equal. CARDIOVASCULAR: Regular rate and rhythm. GI/ABDOMEN: Horizontal surgical incision along the lower abdomen. There is erythema noted along the entire superior length of the wound that extends approximately 2-3 inches above towards the umbilical area. Soft and nontender. No organomegaly or pulsatile mass. No rebound or guarding. Normal bowel sounds. EXTREMITIES: Warm and well perfused. BACK: No CVA tenderness. NEUROLOGICAL: Intact without focal deficits. PSYCHIATRIC: normal affect. MUSCULOSKELETAL: Normally developed with good muscle tone. Medical Decision & Procedures ER Provider Diagnostic Interpretation: Radiology results as stated below per my review and radiologist interpretation: CT ABD/PELVIS IV CONTRAST ONLY CLINICAL HISTORY: Abdominal wall cellulitis status post left oophorectomy. Evaluate for abscess. COMPARISON STUDY: 02/06/2017 TECHNIQUE: Following the IV administration of 93 mL of Optiray-320, CT scan of the abdomen and pelvis was performed from the lung bases to the proximal femurs. Images are reviewed in the axial, sagittal, and coronal planes. IV contrast was administered without complication. A dose lowering technique was utilized adhering to the principles of ALARA. CT DOSE: 969.93 mGycm FINDINGS: Lower chest: The heart is normal in size and configuration, without pericardial effusion. The lung bases and pleural spaces are clear. Liver: The contrast-enhanced liver is normal in size, contour, and attenuation. There is no intrahepatic biliary ductal dilatation. The hepatic veins and portal veins are patent. Gallbladder: Unremarkable. Spleen: Normal in size and attenuation. Pancreas: Unremarkable. Adrenal glands: Unremarkable. Kidneys: There are multiple right renal cortical scars. No solid renal masses are visualized. There is no hydronephrosis. Bowel: There are no transition zones to indicate bowel obstruction. There is no acute diverticulitis. There is no acute appendicitis. Peritoneum: There is a small amount of free pelvic fluid. Vasculature: The abdominal aorta is normal in course and caliber. Adenopathy: None. Pelvic viscera: The bladder, and pelvic viscera are unremarkable. Skeletal structures: There is diffuse cutaneous and subcutaneous edema within the anterior abdominal wall consistent with the clinical history of cellulitis. There is fluid anterior to the left rectus sheath measuring 5.5 cm transversely. There is no enhancing rim to indicate an abscess. There is a 3 cm soft tissue density abutting the posterior aspect of the right rectus sheath. This likely represents a postsurgical hematoma. There are small gas bubbles located anterior to the bladder and abutting the posterior aspect of the inferior rectus sheath. These are likely extraperitoneal and likely relate to recent surgery. IMPRESSION: 1. Skin thickening and edema involving the anterior abdominal wall consistent with a clinical history of cellulitis 2. Fluid collection abutting the anterior aspect of the left rectus sheath. It is not possible to determine whether this is infected. There is no enhancing rim to indicate a definite abscess 3. 3 cm soft tissue density abutting the posterior aspect of the right rectus sheath. This likely represents a postsurgical hematoma 4. Small gas bubbles anterior to the bladder and abutting the posterior aspect of the inferior rectus sheath. These are likely extraperitoneal and likely relate to recent surgery 5. No evidence of intraperitoneal abscess 6. Multifocal right renal cortical scars 7. Small amount of free fluid in the pelvis Electronically signed by: Emory Lambert M.D. 04/16/2017 11:41 AM Dictated Date/Time: 04/16/2017 11:32 AM Laboratory Results 04/16/17 10:00 Red Blood Count 4.11, Mean Corpuscular Volume 89.3, Mean Corpuscular Hemoglobin 29.2, Mean Corpuscular Hemoglobin Concent 32.7, Mean Platelet Volume 11.7, Neutrophils (%) (Auto) 70.0, Lymphocytes (%) (Auto) 23.0, Monocytes (%) (Auto) 6.6, Eosinophils (%) (Auto) 0.0, Basophils (%) (Auto) 0.1, Neutrophils # (Auto) 6.07, Lymphocytes # (Auto) 1.99, Monocytes # (Auto) 0.57, Eosinophils # (Auto) 0.00, Basophils # (Auto) 0.01 04/16/17 10:00 Test 04/16/17 09:29 04/16/17 10:00 Urine Color YELLOW Urine Appearance CLEAR (CLEAR) Urine pH 7.5 (4.5-7.5) Urine Specific [place] 1.022 (1.000-1.030) Urine Protein NEG (NEG) Urine Glucose (UA) NEG (NEG) Urine Ketones NEG (NEG) Urine Occult Blood NEG (NEG) Urine Nitrite NEG (NEG) Urine Bilirubin NEG (NEG) Urine Urobilinogen NEG (NEG) Urine Leukocyte Esterase NEG (NEG) Urine WBC (Auto) 1-5 /hpf (0-5) Urine RBC (Auto) 0-4 /hpf (0-4) Urine Hyaline Casts (Auto) 1-5 /lpf (0-5) Urine Epithelial Cells (Auto) >30 /lpf (0-5) Urine Bacteria (Auto) 1+ (NEG) White Blood Count 8.67 K/uL (4.8-10.8) Red Blood Count 4.11 M/uL (4.2-5.4) Hemoglobin 12.0 g/dL (12.0-16.0) Hematocrit 36.7 % (37-47) Mean Corpuscular Volume 89.3 fL (80-100) Mean Corpuscular Hemoglobin 29.2 pg (25-34) Mean Corpuscular Hemoglobin Concent 32.7 g/dl (32-36) Platelet Count 218 K/uL (130-400) Mean Platelet Volume 11.7 fL (7.4-10.4) Neutrophils (%) (Auto) 70.0 % Lymphocytes (%) (Auto) 23.0 % Monocytes (%) (Auto) 6.6 % Eosinophils (%) (Auto) 0.0 % Basophils (%) (Auto) 0.1 % Neutrophils # (Auto) 6.07 K/uL (1.4-6.5) Lymphocytes # (Auto) 1.99 K/uL (1.2-3.4) Monocytes # (Auto) 0.57 K/uL (0.11-0.59) Eosinophils # (Auto) 0.00 K/uL (0-0.5) Basophils # (Auto) 0.01 K/uL (0-0.2) RDW Standard Deviation 43.1 fL (36.4-46.3) RDW Coefficient of Variation 13.2 % (11.5-14.5) Immature Granulocyte % (Auto) 0.3 % Immature Granulocyte # (Auto) 0.03 K/uL (0.00-0.02) Anion Gap 6.0 mmol/L (3-11) Est Creatinine Clear Calc Drug Dose 137.0 ml/min Estimated GFR () 116.8 Estimated GFR (Non- 100.7 BUN/Creatinine Ratio 15.1 (10-20) Calcium Level 8.7 mg/dl (8.5-10.1) Total Bilirubin 0.2 mg/dl (0.2-1) Aspartate Amino Transf (AST/SGOT) 15 U/L (15-37) Alanine Aminotransferase (ALT/SGPT) 21 U/L (12-78) Alkaline Phosphatase 60 U/L (45-117) Total Protein 6.4 gm/dl (6.4-8.2) Albumin 3.2 gm/dl (3.4-5.0) Globulin 3.2 gm/dl (2.5-4.0) Albumin/Globulin Ratio 1.0 (0.9-2) Laboratory results as stated above per my review. Medications Administered Medications (Trade) Dose Ordered Sig/[place] Route Start Time Stop Time Status Last Admin Dose Admin Ampicillin Sodium/ Sulbactam Sodium 3000 mg/Sodium Chloride 108 ml @ 200 mls/hr ONE ONCE IV 04/16/17 11:00 04/16/17 11:32 DC 04/16/17 11:19 200 MLS/HR ED Course 1040: Previous medical records were reviewed. The patient was evaluated in room A5. A complete history and physical examination was performed. 1100: Ampicillin Sodium/ Sulbactam Sodium 3000mg/Sodium Chloride 108ml @ 200mls/ hr IV 1308: I discussed the patient's case with Dr. Woodall, [facility], and she states that the patient can be discharged and follow up with her soon. 1322: On reevaluation, the patient is feeling well. I discussed the results and findings with the patient. She verbalized agreement of the treatment plan. She was discharged home. Medical Decision Differential diagnosis: Etiologies such as cellulitis, abscess, MRSA infection, DVT, necrotizing fasciitis, dermatitis, drug eruption, as well as others were entertained. Consults Time Called: 1245 Consulting Physician: [facility] Returned Call: 1308 I discussed the patient's case with [facility], and she states that the patient can be discharged and follow up with her soon. Impression Primary Impression: Abdominal wall cellulitis Scribe Attestation The scribe's documentation has been prepared under my direction and personally reviewed by me in its entirety. I confirm that the note above accurately reflects all work, treatment, procedures, and medical decision making performed by me. Departure Information Dispostion Home / Self-Care Prescriptions Oxycodone/Acetaminophen 5MG/325MG (PERCOCET 5MG/325MG) Tab 1 TAB PO Q6H Y for Pain, #20 TAB Prov: Chapincito Sena D.O. 04/16/17 Cephalexin Monohydrate (Keflex) 500 Mg Cap 500 MG PO QID, #40 CAP Prov: Chapincito Sena D.O. 04/16/17 Referrals No Doctor, Assigned (PCP) Forms HOME CARE DOCUMENTATION FORM, IMPORTANT VISIT INFORMATION, WORK / SCHOOL INSTRUCTIONS Patient Instructions My [facility] Additional Instructions Follow-up with Dr. Rodríguez for recheck. They will call you to schedule an appointment. Keflex as prescribed. Return for fevers, vomiting, significant worsening or other concerns.
[2017-04-16 13:37] VITALS: BP 107/68; PULSE 66; TEMP 36.8; O2SAT 100
== END 2017-04-16 13:38 | disposition home or self-care (01) ==
LOC: C.EDB 09:14 → C.EDA 13:38
DX: L03.311 Cellulitis of abdominal wall (principal); G40.909 Epilepsy, unspecified, not intractable, without status epilepticus; F31.9 Bipolar disorder, unspecified; F17.200 Nicotine dependence, unspecified, uncomplicated; Z90.710 Acquired absence of both cervix and uterus; Z79.899 Other long term (current) drug therapy; Z88.5 Allergy status to narcotic agent; Z81.8 Family history of other mental and behavioral disorders

== ENCOUNTER 2017-07-20 16:19 | Emergency (ER) | payer OTHER ==
[~2017-07-20] VITALS: Ht 177.8 cm; Wt 90.5 kg
[~2017-07-20 16:19] MED LIST changes: +CEPH500C PO; -DOCU100C31 PO; -IBUP-1428 PO; +LAMO200T35 PO; -LAMO200T38 PO; -ONDA8TAB62 SL; +OXYC-57 PO; -OXYC1TAB3 PO
[2017-07-20 16:21] VITALS: Ht 177.8 cm; Wt 90.5 kg
[2017-07-20] MEDS ORDERED: ONDANSETRON INJ 2 MG/ML 2 ML VIAL IV STA (16:32)
[2017-07-20] MEDS ORDERED: KETOROLAC TROMETHAMINE 30 MG/ML VIAL IV STA (16:32)
[2017-07-20] MEDS ORDERED: SODIUM CHLORIDE 0.9% 1000ML 1,000 ML IV STA (16:32)
[2017-07-20] MEDS ORDERED: OPTIRAY 320 IV PRN (16:45)
[2017-07-20] MEDS ORDERED: MoRPHine SULFATE 4 MG/ML 1 ML CARP\\VIAL ONE (16:45)
[2017-07-20] MEDS ORDERED: MoRPHine SULFATE 10 MG/ML CARP/VIAL IV PRN (16:45)
[2017-07-20] MEDS ORDERED: MoRPHine SULFATE 2 MG/ML CARP ONE (16:46)
--- NOTE | 2017-07-20 16:52 | EMERGENCY ROOM VISIT NOTE ---
History Report prepared by Keshia: Veronica Min Under the Supervision of: Dr. Dustin Valdez M.D. First contact with patient: 16:25 Chief Complaint: ABDOMINAL PAIN Stated Complaint: SEVERE ABD PAIN, CHILLS, HEADACHE, VAGINAL BLEED History of Present Illness The patient is a 36 year old female who presents to the Emergency Room with complaints of worsening abdominal pain starting a few days ago. The patient states that it started out that she was really gassy. She reports that after some time it started to become painful. She states that she would have abdominal pain, pass gas, and the pain would only go away temporarily before coming back. She states that the abdominal pain is now constant. She states that she took Ibuprofen with no relief. The patient notes that she thought she had the flu two days ago because she had a fever and chills with it. She states that she still has a fever intermittently. She notes that she has not moved her bowels in a few days, but states that this is normal for her since she started taking Methadone. The patient complains of back pain and vaginal bleeding. She notes that the vaginal bleeding could be from her menstrual cycle, but notes that it started at the exact same time as the abdominal pain. The patient denies vomiting, diarrhea, urinary symptoms. She denies ever having pain like this before. The patient notes that she had a right ovarian cyst removed a few months ago, but denies any other abdominal surgeries. Source of History: patient Onset: a few days ago Position: abdomen Timing: constant, worsening Modifying Factors (Relieving): other (passing gas) Associated Symptoms: + fevers, + back pain, No vomiting, No diarrhea, No urinary symptoms Note: The patient complains fo vaginal bleeding. The patient denies any masses in her abdomen. Review of Systems See HPI for pertinent positives & negatives. A total of 10 systems reviewed and were otherwise negative. Past Medical & Surgical Medical Problems: (1) Antisocial personality disorder (2) Bipolar disorder (3) Cannabis abuse (4) Chronic back pain (5) Depression (6) Hysterectomy (7) Nicotine abuse (8) orthopedic surgery (9) Seizure (10) Seizure disorder Family History FH: depression FH: suicide Social History Smoking Status: Current Every Day Smoker Alcohol Use: none Drug Use: heroin Marital Status: Housing Status: lives with family Occupation Status: employed Current/Historical Medications Scheduled Ciprofloxacin Hcl (Cipro), 500 MG PO BID Gabapentin (Neurontin), 800 MG PO TID Lamotrigine (Lamictal), 200 MG PO DAILY Methadone Hcl (Methadone Hcl), 63 MG PO DAILY Metronidazole (Flagyl), 1 TAB PO TID Allergies Coded Allergies: Codeine (Verified Allergy, Intermediate, COULDN'T BREATHE, FINGERS SWELL, 11/05/16) 01/20/13: has percocet in past without problem Physical Exam Vital Signs Date Time Temp Pulse Resp B/P (MAP) Pulse Ox O2 Delivery O2 Flow Rate FiO2 07/20/17 16:21 36.9 106 18 125/79 99 Room Air Physical Exam GENERAL: Patient is in no acute distress. HEENT: No acute trauma, normocephalic atraumatic, mucous membranes moist, no nasal congestion, no scleral icterus. NECK: No stridor, no adenopathy, no meningismus, trachea is midline. LUNGS: Clear to auscultation bilaterally, no wheeze, no rhonchi, breath sounds equal. HEART: Without murmurs gallops or rubs, regular rate and rhythm. ABDOMEN: Soft, bowel sounds positive, no hernias, no peritonitis. Tenderness to both lower quadrants. Pelvic incision is healing without infection. BACK: No flank discomfort with percussion. EXTREMITIES: No cyanosis or edema, full range of motion of all the joints without pain or difficulty, no signs for acute trauma. NEUROLOGIC: Oriented x 3, no acute motor or sensory deficits, no focal weakness. SKIN: No rash, no jaundice, no diaphoresis. Medical Decision & Procedures ER Provider Diagnostic Interpretation: Radiology results as stated below per my review and radiologist interpretation: CHEST ONE VIEW PORTABLE CLINICAL HISTORY: ABDOMINAL PAIN/GI pain COMPARISON STUDY: 11/17/2012 FINDINGS: The bones soft tissues and hemidiaphragms are normal. The cardiomediastinal silhouette is normal. The lungs are clear. The pulmonary vasculature is normal. IMPRESSION: Negative chest. The above report was generated using voice recognition software. It may contain grammatical, syntax or spelling errors. Electronically signed by: Rory Bowman M.D. 07/20/2017 5:15 PM Dictated Date/Time: 07/20/2017 5:15 PM ABD/PELVIS IV CONTRAST ONLY CT DOSE: 707.61 mGy.cm HISTORY: Pain. Nausea. ABD PAIN, Poss mass, bleeding or divertic, IV CONTRAST ONLY TECHNIQUE: Multiaxial CT images of the abdomen and pelvis were performed following the use of intravenous contrast. A dose lowering technique was utilized adhering to the principles of ALARA. COMPARISON STUDY: 04/16/2017 FINDINGS: The lung bases are clear. Liver spleen and pancreas enhance uniformly. Kidneys negative for hydronephrosis. The bowel pattern is consistent with several mildly distended loops of fluid-filled small bowel as well as colon. There is a trace amount of free fluid within the pelvic cul-de-sac. There are findings of mild wall thickening and pericolonic infiltrative change of the low rectosigmoid. The bowel pattern overall is nonobstructive. There is no evidence for drainable abscess or collection. The appearance of the anterior abdominal wall has converted to a normal/near Normal appearance. All fluid collections and infiltrative changes previously described have resolved. IMPRESSION: 1. Moderate nonspecific colitis involving the low rectosigmoid. 2. Moderate pericolonic infiltrative change, with no evidence for abscess or collection. 3. Mild enteritis/reactive ileus of the majority of the small bowel. 4. Improved appearance of the anterior abdominal wall compared to the prior exam with no significant residual. The above report was generated using voice recognition software. It may contain grammatical, syntax or spelling errors. Electronically signed by: Rory Bowman M.D. 07/20/2017 6:14 PM Dictated Date/Time: 07/20/2017 6:08 PM Laboratory Results 07/20/17 17:00 Red Blood Count 4.26, Mean Corpuscular Volume 88.5, Mean Corpuscular Hemoglobin 29.8, Mean Corpuscular Hemoglobin Concent 33.7, Mean Platelet Volume 11.9, Neutrophils (%) (Auto) 80.0, Lymphocytes (%) (Auto) 10.9, Monocytes (%) (Auto) 8.5, Eosinophils (%) (Auto) 0.1, Basophils (%) (Auto) 0.1, Neutrophils # (Auto) 11.26, Lymphocytes # (Auto) 1.53, Monocytes # (Auto) 1.20, Eosinophils # (Auto) 0.02, Basophils # (Auto) 0.01 07/20/17 17:00 Test 07/20/17 16:45 07/20/17 17:00 Urine Color DK YELLOW Urine Appearance CLEAR (CLEAR) Urine pH 5.5 (4.5-7.5) Urine Specific [place] 1.034 (1.000-1.030) Urine Protein TRACE (NEG) Urine Glucose (UA) NEG (NEG) Urine Ketones 1+ (NEG) Urine Occult Blood 2+ (NEG) Urine Nitrite NEG (NEG) Urine Bilirubin NEG (NEG) Urine Urobilinogen POS (NEG) Urine Leukocyte Esterase NEG (NEG) Urine WBC (Auto) 1-5 /hpf (0-5) Urine RBC (Auto) 5-10 /hpf (0-4) Urine Hyaline Casts (Auto) 1-5 /lpf (0-5) Urine Epithelial Cells (Auto) 20-30 /lpf (0-5) Urine Bacteria (Auto) NEG (NEG) White Blood Count 14.07 K/uL (4.8-10.8) Red Blood Count 4.26 M/uL (4.2-5.4) Hemoglobin 12.7 g/dL (12.0-16.0) Hematocrit 37.7 % (37-47) Mean Corpuscular Volume 88.5 fL (80-100) Mean Corpuscular Hemoglobin 29.8 pg (25-34) Mean Corpuscular Hemoglobin Concent 33.7 g/dl (32-36) Platelet Count 153 K/uL (130-400) Mean Platelet Volume 11.9 fL (7.4-10.4) Neutrophils (%) (Auto) 80.0 % Lymphocytes (%) (Auto) 10.9 % Monocytes (%) (Auto) 8.5 % Eosinophils (%) (Auto) 0.1 % Basophils (%) (Auto) 0.1 % Neutrophils # (Auto) 11.26 K/uL (1.4-6.5) Lymphocytes # (Auto) 1.53 K/uL (1.2-3.4) Monocytes # (Auto) 1.20 K/uL (0.11-0.59) Eosinophils # (Auto) 0.02 K/uL (0-0.5) Basophils # (Auto) 0.01 K/uL (0-0.2) RDW Standard Deviation 43.4 fL (36.4-46.3) RDW Coefficient of Variation 13.4 % (11.5-14.5) Immature Granulocyte % (Auto) 0.4 % Immature Granulocyte # (Auto) 0.05 K/uL (0.00-0.02) Anion Gap 6.0 mmol/L (3-11) Est Creatinine Clear Calc Drug Dose 138.2 ml/min Estimated GFR () 131.0 Estimated GFR (Non- 113.0 BUN/Creatinine Ratio 21.8 (10-20) Calcium Level 8.5 mg/dl (8.5-10.1) Total Bilirubin 0.4 mg/dl (0.2-1) Aspartate Amino Transf (AST/SGOT) 9 U/L (15-37) Alanine Aminotransferase (ALT/SGPT) 15 U/L (12-78) Alkaline Phosphatase 75 U/L (45-117) Total Protein 7.4 gm/dl (6.4-8.2) Albumin 3.4 gm/dl (3.4-5.0) Globulin 4.0 gm/dl (2.5-4.0) Albumin/Globulin Ratio 0.9 (0.9-2) Lipase 50 U/L (73-393) Laboratory results reviewed by me. Medications Administered Medications (Trade) Dose Ordered Sig/Landen Route Start Time Stop Time Status Last Admin Dose Admin Ondansetron HCl (Zofran Inj) 4 mg NOW STAT IV 07/20/17 16:32 07/20/17 16:35 DC 07/20/17 17:01 4 MG Sodium Chloride 1,000 ml @ 999 mls/hr Q1H1M STAT IV 07/20/17 16:32 07/20/17 17:32 DC 07/20/17 17:01 999 MLS/HR Ketorolac Tromethamine (Toradol Inj) 30 mg NOW STAT IV 07/20/17 16:32 07/20/17 16:35 DC 07/20/17 17:01 30 MG Morphine Sulfate (MoRPHine SULFATE INJ) 4 mg STK-MED ONCE .ROUTE 07/20/17 16:45 07/20/17 16:46 DC 07/20/17 16:45 4 MG Morphine Sulfate (MoRPHine SULFATE INJ) 2 mg STK-MED ONCE .ROUTE 07/20/17 16:46 07/20/17 16:47 DC 07/20/17 17:02 2 MG ECG Indication: other (concern about QT prolongantion) Rate (beats per minute): 82 Rhythm: normal sinus Findings: no acute ischemic change, no ectopy, other (no significant QT prolongnation) ED Course 1627: The patient was evaluated in room C3. A complete history and physical exam was performed. 163: Ordered Toradol Inj 30 mg IV, NSS 1000 ml @ 999 mls/hr IV, Zofran Inj 4 mg IV. 1645: Ordered Morphine Sulfate 6 mg PRN IV pain. 184: I reevaluated the patient and updated her on her results. I notified her that I am going to consult GI. 184: Discussed the patient's case with Dr. Pratibha KELLY. She recommended a course of Cipro and Flagyl. 185: Ordered Flagyl Tab 500 mg PO, Cipro Tab 500 mg PO. 190:Reevaluated the patient. Discussed results and discharge instructions: She verbalized understanding and agreement. The patient is ready for discharge. Medical Decision Differential diagnoses include diverticulitis, colitis, ovarian cyst, intraabdominal bleeding, UTI, appendicitis, pancreatitis, biliary colic, bowel perforation, constipation. There is a moderate leukocytosis at 14,000 this could be consistent with infection. No worrisome anemia. No significant electrolyte abnormality, kidney failure, hepatitis or pancreatitis. Urinalysis shows some contamination , no infection. Chest film does not show pneumonia or free air. Abdominal and pelvis CT shows colitis, no bowel obstruction, a possible ileus was noted. No abscess that requires drainage. The patient was not febrile or toxic. She did have some tenderness with palpation of the lower abdomen bilaterally. The patient received IV morphine, IV Toradol and IV Zofran. She was given IV saline. She received a dose of oral Cipro and oral Flagyl. I spoke with the on-call GI doctor, a short course of Cipro and Flagyl was recommended. The patient does want to be discharged home and has agreed to return if worsening. Certainly, the colitis findings explain her discomfort. [place] Drug Monitoring Program Search Results: no issues identified Medication Reconcilliation Current Medication List: was personally reviewed by me Blood Pressure Screening Patient's blood pressure: Normal blood pressure Blood pressure disposition: Did not require urgent referral Consults Time Called: 1839 Consulting Physician: Dr. Kwame BRAGG Returned Call: [phone] Discussed the patient's case with Dr. Pratibha KELLY. She recommended a course of Cipro and Flagyl. Impression Primary Impression: Colitis Additional Impression: Lower abdominal pain Scribe Attestation The scribe's documentation has been prepared under my direction and personally reviewed by me in its entirety. I confirm that the note above accurately reflects all work, treatment, procedures, and medical decision making performed by me. Departure Information Dispostion Home / Self-Care Prescriptions Metronidazole (FLAGYL) 500 Mg Tab 1 TAB PO TID for 5 Days, #15 TAB Prov: Dustin Valdez M.D. 07/20/17 Ciprofloxacin Hcl (CIPRO) 500 Mg Tab 500 MG PO BID, #20 TAB Prov: Dustin Valdez M.D. 07/20/17 Referrals No Doctor, Assigned (PCP) Forms Call Back Authorization, HOME CARE DOCUMENTATION FORM, IMPORTANT VISIT INFORMATION Patient Instructions My [facility] Additional Instructions cipro 2x per day for 5 days flagyl 3x per day for 5 days bland diet---crackers, soup, toast, gatorade oxy ir 1 tab every 4 hours for severe pain tylenol for fever and moderate pain rest return for worsening symptoms, vomiting or if not improving Problem Qualifiers
[2017-07-20 17:05] LABS: BASO % 0.1 %; BASO ABS # 0.01 K/uL (0-0.2); EOS % 0.1 %; EOS ABS # 0.02 K/uL (0-0.5); HEMATOCRIT 37.7 % (37-47); HEMOGLOBIN 12.7 g/dL (12.0-16.0); IG# 0.05 K/uL (0.00-0.02); LYMPH % 10.9 %; LYMPH ABS # 1.53 K/uL (1.2-3.4); MEAN CELL VOLUME 88.5 fL (80-100); MEAN CORPUSCULAR HEMOGLOBIN 29.8 pg (25-34); MEAN CORPUSCULAR HGB CONC 33.7 g/dl (32-36); MEAN PLATELET VOLUME 11.9 fL (7.4-10.4); MONO % 8.5 %; NEUT ABS # 11.26 K/uL (1.4-6.5); PLATELET COUNT 153 K/uL (130-400); RED CELL DISTRIBUTION WIDTH CV 13.4 % (11.5-14.5); RED CELL DISTRIBUTION WIDTH SD 43.4 fL (36.4-46.3); WHITE BLOOD COUNT 14.07 K/uL (4.8-10.8)
--- NOTE | 2017-07-20 17:16 | DIAGNOSTIC IMAGING REPORT ---
CHEST ONE VIEW PORTABLE CLINICAL HISTORY: ABDOMINAL PAIN/GI pain COMPARISON STUDY: 11/17/2012 FINDINGS: The bones soft tissues and hemidiaphragms are normal. The cardiomediastinal silhouette is normal. The lungs are clear. The pulmonary vasculature is normal. IMPRESSION: Negative chest. The above report was generated using voice recognition software. It may contain grammatical, syntax or spelling errors. Electronically signed by: Rory Bowman M.D. 07/20/2017 5:15 PM Dictated Date/Time: 07/20/2017 5:15 PM
[2017-07-20 17:27] LABS: ALBUMIN 3.4 gm/dl (3.4-5.0); CALCIUM 8.5 mg/dl (8.5-10.1); CREATININE 0.7 mg/dl (0.60-1.20)
--- NOTE | 2017-07-20 18:15 | DIAGNOSTIC IMAGING REPORT ---
ABD/PELVIS IV CONTRAST ONLY CT DOSE: 707.61 mGy.cm HISTORY: Pain. Nausea. ABD PAIN, Poss mass, bleeding or divertic, IV CONTRAST ONLY TECHNIQUE: Multiaxial CT images of the abdomen and pelvis were performed following the use of intravenous contrast. A dose lowering technique was utilized adhering to the principles of ALARA. COMPARISON STUDY: 04/16/2017 FINDINGS: The lung bases are clear. Liver spleen and pancreas enhance uniformly. Kidneys negative for hydronephrosis. The bowel pattern is consistent with several mildly distended loops of fluid-filled small bowel as well as colon. There is a trace amount of free fluid within the pelvic cul-de-sac. There are findings of mild wall thickening and pericolonic infiltrative change of the low rectosigmoid. The bowel pattern overall is nonobstructive. There is no evidence for drainable abscess or collection. The appearance of the anterior abdominal wall has converted to a normal/near Normal appearance. All fluid collections and infiltrative changes previously described have resolved. IMPRESSION: 1. Moderate nonspecific colitis involving the low rectosigmoid. 2. Moderate pericolonic infiltrative change, with no evidence for abscess or collection. 3. Mild enteritis/reactive ileus of the majority of the small bowel. 4. Improved appearance of the anterior abdominal wall compared to the prior exam with no significant residual. The above report was generated using voice recognition software. It may contain grammatical, syntax or spelling errors. Electronically signed by: Rory Bowman M.D. 07/20/2017 6:14 PM Dictated Date/Time: 07/20/2017 6:08 PM
[2017-07-20 18:39] LABS: POTASSIUM 3.7 mmol/L (3.5-5.1); TOTAL PROTEIN 7.4 gm/dl (6.4-8.2)
[2017-07-20] MEDS ORDERED: CIPROFLOXACIN 500 MG TAB PO STA (18:50)
[2017-07-20] MEDS ORDERED: METRONIDAZOLE 250 MG TAB PO STA (18:50)
[2017-07-20] MEDS ORDERED: METR-162 PO (18:58)
[2017-07-20] MEDS ORDERED: CIPR-255 PO (18:58)
[2017-07-20] MEDS ORDERED: OXYCODONE IR HOME PACK PO ONE ×2 (19:27→19:30)
[2017-07-20 19:44] VITALS: BP 125/79; PULSE 106; TEMP 36.9; O2SAT 99
[2017-12-31] MEDS ORDERED: IBUP-1050 PO (11:51)
[2017-12-31] MEDS ORDERED: METH4PAK PO (15:45)
[2017-12-31] MEDS ORDERED: AMOX875T PO (15:45)
[2018-02-11] MEDS ORDERED: SULF800T23 PO (18:53)
[2018-02-11] MEDS ORDERED: PHEN-876 PO (18:53)
[2018-02-16] MEDS ORDERED: NICO7DIS7 TD (16:04)
[2018-02-16] MEDS ORDERED: ACET-1047 PO (16:04)
[2018-02-16] MEDS ORDERED: MTR600X PO (16:04)
[2018-02-16] MEDS ORDERED: BUPR2MIS PO (16:04)
== END 2017-07-20 19:44 | disposition home or self-care (01) ==
LOC: C.EDB 16:20 → C.EDC 19:44
DX: K52.9 Noninfective gastroenteritis and colitis, unspecified (principal); R10.30 Lower abdominal pain, unspecified; F31.9 Bipolar disorder, unspecified; F17.200 Nicotine dependence, unspecified, uncomplicated; Z90.710 Acquired absence of both cervix and uterus; G40.909 Epilepsy, unspecified, not intractable, without status epilepticus; Z98.890 Other specified postprocedural states; Z81.8 Family history of other mental and behavioral disorders; Z79.899 Other long term (current) drug therapy

== ENCOUNTER 2017-10-17 00:23 | Emergency (ER) | payer OTHER ==
[~2017-10-17] VITALS: Ht 177.8 cm; Wt 93.9 kg
[~2017-10-17 00:23] MED LIST changes: -CEPH500C PO; +CIPR-255 PO; -OXYC-57 PO
[2017-10-17 00:31] VITALS: BP 124/79; PULSE 107; O2SAT 98; Ht 177.8 cm; Wt 93.9 kg
--- NOTE | 2017-10-17 01:05 | EMERGENCY ROOM VISIT NOTE ---
History Report prepared by Keshia: Morgan Bell Under the Supervision of: Dr. Yoly Medina M.D. First contact with patient: 00:37 Chief Complaint: MENTAL HEALTH EVALUATION Stated Complaint: PYSCHIC/MEDS History of Present Illness The patient is a 36 year old female who presents to the Emergency Room with complaints of worsening decompensation beginning a month ago. The patient states that she has a long history of mental health problems and has been feeling unstable for the last few months. She notes that she was on Lamictal and Suboxone, but reports that she stopped taking her Lamictal a month ago. The patient states that since she stopped taking her medication, she has become more irrational, manic, and unstable. She notes that she does not feel suicidal and has no suicide plan but has had thoughts. She reports that she used cocaine last night and did meth 3 days ago. The patient states that she also uses marijuana a couple times a week. She notes that she started using cocaine last year and only started using meth within the last month. She reports that she has not had any overdoses. The patient states that there is a chance that she is . Source of History: patient Onset: a month ago Position: other (global) Quality: other (decompensation) Timing: worsening Note: The patient states that she has become more irrational, manic, and unstable. She denies any suicidal and homicidal ideations. Review of Systems See HPI for pertinent positives & negatives. A total of 10 systems reviewed and were otherwise negative. Past Medical & Surgical Medical Problems: (1) Antisocial personality disorder (2) Bipolar disorder (3) Cannabis abuse (4) Chronic back pain (5) Depression (6) Hysterectomy (7) Nicotine abuse (8) orthopedic surgery (9) Seizure (10) Seizure disorder Surgical Problems: (1) History of back surgery (2) Hx of ovarian cystectomy (3) Hx of removal of ovary Family History Cancer FH: depression FH: suicide Social History Smoking Status: Current Every Day Smoker Alcohol Use: none Drug Use: cocaine, heroin, marijuana, other (meth) Marital Status: Housing Status: lives with family Occupation Status: employed Current/Historical Medications Scheduled Buprenorphine Hcl-Naloxone Hcl (Suboxone 8-2 Mg), 8 MG PO BID Gabapentin (Neurontin), 800 MG PO TID Lamotrigine (Lamictal), 200 MG PO DAILY Allergies Coded Allergies: Codeine (Verified Allergy, Severe, COULDN'T BREATHE, FINGERS SWELL, ) 01/20/13: has percocet in past without problem Physical Exam Vital Signs Date Time Temp Pulse Resp B/P (MAP) Pulse Ox O2 Delivery O2 Flow Rate FiO2 10/17/17 01:39 36.8 10/17/17 00:31 107 18 124/79 98 Room Air Physical Exam Vital signs reviewed. General: Disheveled female, in no significant distress. HEENT: No scleral icterus, PERRLA, neck supple. Atraumatic. Cardiovascular: Regular rate and rhythm, no extra sounds. Pulmonary: Clear to auscultation bilaterally, normal work of breathing. Abdomen: Soft, nontender, nondistended, positive bowel sounds. Musculoskeletal: Atraumatic, no peripheral edema. Neurologic: Patient awake alert and oriented x 3, full strength in all 4 extremities. Cranial nerves 2 through 12 grossly intact. Psych: Positive SI with no plan, negative HI. Skin: Warm, dry, no rash Medical Decision & Procedures Laboratory Results 10/17/17 01:08 Red Blood Count 4.58, Mean Corpuscular Volume 87.8, Mean Corpuscular Hemoglobin 29.5, Mean Corpuscular Hemoglobin Concent 33.6, Mean Platelet Volume 11.2, Neutrophils (%) (Auto) 63.1, Lymphocytes (%) (Auto) 28.8, Monocytes (%) (Auto) 4.8, Eosinophils (%) (Auto) 3.0, Basophils (%) (Auto) 0.1, Neutrophils # (Auto) 5.65, Lymphocytes # (Auto) 2.58, Monocytes # (Auto) 0.43, Eosinophils # (Auto) 0.27, Basophils # (Auto) 0.01 10/17/17 01:08 Test 10/17/17 00:50 10/17/17 01:08 Urine Color YELLOW Urine Appearance CLEAR (CLEAR) Urine pH 6.0 (4.5-7.5) Urine Specific [place] 1.017 (1.000-1.030) Urine Protein NEG (NEG) Urine Glucose (UA) NEG (NEG) Urine Ketones NEG (NEG) Urine Occult Blood NEG (NEG) Urine Nitrite NEG (NEG) Urine Bilirubin NEG (NEG) Urine Urobilinogen NEG (NEG) Urine Leukocyte Esterase TRACE (NEG) Urine WBC (Auto) 5-10 /hpf (0-5) Urine RBC (Auto) 0-4 /hpf (0-4) Urine Hyaline Casts (Auto) 0 /lpf (0-5) Urine Epithelial Cells (Auto) 20-30 /lpf (0-5) Urine Bacteria (Auto) NEG (NEG) Urine Test NEG (NEG) Urine Opiates Screen NEG (NEG) Urine Methadone, Qualitative NEG (NEG) Urine Barbiturates NEG (NEG) Urine Phencyclidine (PCP) Level NEG (NEG) Ur Amphetamine/Methamphetamine POS (NEG) MDMA (Ecstasy) Screen NEG (NEG) Urine Benzodiazepines Screen NEG (NEG) Urine Cocaine Metabolite POS (NEG) Urine Marijuana (THC) POS (NEG) White Blood Count 8.96 K/uL (4.8-10.8) Red Blood Count 4.58 M/uL (4.2-5.4) Hemoglobin 13.5 g/dL (12.0-16.0) Hematocrit 40.2 % (37-47) Mean Corpuscular Volume 87.8 fL (80-100) Mean Corpuscular Hemoglobin 29.5 pg (25-34) Mean Corpuscular Hemoglobin Concent 33.6 g/dl (32-36) Platelet Count 238 K/uL (130-400) Mean Platelet Volume 11.2 fL (7.4-10.4) Neutrophils (%) (Auto) 63.1 % Lymphocytes (%) (Auto) 28.8 % Monocytes (%) (Auto) 4.8 % Eosinophils (%) (Auto) 3.0 % Basophils (%) (Auto) 0.1 % Neutrophils # (Auto) 5.65 K/uL (1.4-6.5) Lymphocytes # (Auto) 2.58 K/uL (1.2-3.4) Monocytes # (Auto) 0.43 K/uL (0.11-0.59) Eosinophils # (Auto) 0.27 K/uL (0-0.5) Basophils # (Auto) 0.01 K/uL (0-0.2) RDW Standard Deviation 43.5 fL (36.4-46.3) RDW Coefficient of Variation 13.7 % (11.5-14.5) Immature Granulocyte % (Auto) 0.2 % Immature Granulocyte # (Auto) 0.02 K/uL (0.00-0.02) Anion Gap 5.0 mmol/L (3-11) Est Creatinine Clear Calc Drug Dose 105.8 ml/min Estimated GFR () 92.9 Estimated GFR (Non- 80.2 BUN/Creatinine Ratio 15.1 (10-20) Calcium Level 9.1 mg/dl (8.5-10.1) Total Bilirubin 0.2 mg/dl (0.2-1) Direct Bilirubin < 0.1 mg/dl (0-0.2) Aspartate Amino Transf (AST/SGOT) 19 U/L (15-37) Alanine Aminotransferase (ALT/SGPT) 20 U/L (12-78) Alkaline Phosphatase 65 U/L (45-117) Total Protein 7.8 gm/dl (6.4-8.2) Albumin 4.1 gm/dl (3.4-5.0) Thyroid Stimulating Hormone (TSH) 0.548 uIu/ml (0.300-4.500) Salicylates Level 1.9 mg/dl (2.8-20) Acetaminophen Level < 2 ug/ml (10-30) Ethyl Alcohol mg/dL < 3.0 mg/dl (0-3) Laboratory results per my review. ED Course 0045: Past medical records reviewed. The patient was evaluated in room A2. A complete history and physical examination was performed. 0448: I spoke to psychiatric case management and told them to call the patients . 0521: I spoke to psychiatric case management. They note that the patient has stated that she has suicidal thoughts but no plan. She also notes that calling her would not be necessary. 0523: I reevaluated and updated the patient. 0559: Upon reevaluation, the patient appeared to have improvement of her symptoms. I discussed findings with her. She verbalized agreement of the treatment plan. The patient was discharged home. Medical Decision Differential diagnosis: Etiologies such as mood disorder, infection, hypoglycemia, electrolyte abnormalities, cardiac sources, intracerebral event, toxicologic, neurologic, as well as others were entertained. This pt was evaluated and appeared to be in no distress. Pt was medically evaluated. During the evaluation, an object fell from her possession to the floor. It was felt to be drug paraphernalia. Pt was cleared for psych CM evaluation. Pt is not actively suicidal, she has no plan. Pt states her children are with her mother. She is having marital issues currently. I do not believe the pt meets 302 criteria and she is unwilling to voluntarily go anywhere but [address]. They do not currently have a bed available. Pt was able to safety contract. She was d/c with outpt recommendations to establish care. She ill return to the ED for worsening of symptoms or any medical concerns. Blood Pressure Screening Patient's blood pressure: Normal blood pressure Blood pressure disposition: Did not require urgent referral Impression Primary Impression: Polysubstance abuse Scribe Attestation The scribe's documentation has been prepared under my direction and personally reviewed by me in its entirety. I confirm that the note above accurately reflects all work, treatment, procedures, and medical decision making performed by me. Departure Information Dispostion Home / Self-Care Referrals No Doctor, Assigned (PCP) Forms HOME CARE DOCUMENTATION FORM, IMPORTANT VISIT INFORMATION Patient Instructions My [facility] Additional Instructions Diagnosis: Polysubstance abuse Please drink plenty of clear fluids. Follow-up with [facility] drugs and alcohol. Contact the numbers provided for outpatient mental health treatment. Return to the emergency department for worsening of symptoms or any medical concerns.
[2017-10-17] MEDS ORDERED: BUPR1SUB23 PO (01:12)
[2017-10-17 01:22] LABS: BASO % 0.1 %; BASO ABS # 0.01 K/uL (0-0.2); EOS ABS # 0.27 K/uL (0-0.5); HEMATOCRIT 40.2 % (37-47); HEMOGLOBIN 13.5 g/dL (12.0-16.0); IG# 0.02 K/uL (0.00-0.02); LYMPH % 28.8 %; LYMPH ABS # 2.58 K/uL (1.2-3.4); MEAN CELL VOLUME 87.8 fL (80-100); MEAN CORPUSCULAR HEMOGLOBIN 29.5 pg (25-34); MEAN CORPUSCULAR HGB CONC 33.6 g/dl (32-36); MEAN PLATELET VOLUME 11.2 fL (7.4-10.4); MONO % 4.8 %; MONO ABS # 0.43 K/uL (0.11-0.59); NEUT % 63.1 %; NEUT ABS # 5.65 K/uL (1.4-6.5); PLATELET COUNT 238 K/uL (130-400); RED CELL DISTRIBUTION WIDTH CV 13.7 % (11.5-14.5); RED CELL DISTRIBUTION WIDTH SD 43.5 fL (36.4-46.3); WHITE BLOOD COUNT 8.96 K/uL (4.8-10.8)
[2017-10-17 01:39] VITALS: TEMP 36.8
[2017-10-17 01:44] LABS: BLOOD UREA NITROGEN 14 mg/dl (7-18); CREATININE 0.93 mg/dl (0.60-1.20); GLUCOSE 97 mg/dl (70-99)
[2017-10-17 01:45] LABS: ALBUMIN 4.1 gm/dl (3.4-5.0); ALT/SGPT 20 U/L (12-78); AST/SGOT 19 U/L (15-37); CALCIUM 9.1 mg/dl (8.5-10.1); CARBON DIOXIDE 27 mmol/L (21-32); SODIUM 137 mmol/L (136-145)
[2017-10-17 01:55] LABS: ALKALINE PHOSPHATASE 65 U/L (45-117); TOTAL PROTEIN 7.8 gm/dl (6.4-8.2)
== END 2017-10-17 05:56 | disposition home or self-care (01) ==
LOC: C.EDB 00:25 → C.EDA 05:56
DX: F12.10 Cannabis abuse, uncomplicated (principal); F14.10 Cocaine abuse, uncomplicated; F15.10 Other stimulant abuse, uncomplicated; G40.909 Epilepsy, unspecified, not intractable, without status epilepticus; Z79.899 Other long term (current) drug therapy; Z88.5 Allergy status to narcotic agent; Z81.8 Family history of other mental and behavioral disorders

== ENCOUNTER 2018-02-15 15:41 | Inpatient (IN) | payer OTHER ==
[~2018-02-15] VITALS: Ht 177.8 cm; Wt 83.0 kg
[~2018-02-15 15:41] MED LIST changes: -CIPR-255 PO; -GABA800T PO; -LAMO200T35 PO; -METH10SO PO; +PHEN-876 PO; +SULF800T23 PO
[2018-02-15] MEDS ORDERED: SODIUM CHLORIDE 0.9% 1000ML 1,000 ML IV STA (15:53)
[2018-02-15] MEDS ORDERED: ACETAMINOPHEN 500 MG TAB PO STA (15:53)
[2018-02-15] MEDS ORDERED: KETOROLAC TROMETHAMINE 30 MG/ML VIAL IV STA (15:53)
[2018-02-15] MEDS ORDERED: CEFTRIAXONE SOD INJ 1 GM ADDVIAL IV STA (15:56)
[2018-02-15] MEDS ORDERED: CIPR-255 PO (16:17)
--- NOTE | 2018-02-15 16:37 | EMERGENCY ROOM VISIT NOTE ---
ED Visit Note First contact with patient: 15:48 CHIEF COMPLAINT: Right flank pain, fevers, body aches HISTORY OF PRESENTING ILLNESS: This is a 37-year-old female who presents the emergency department with complaint of right flank pain, fever/chills, and body aches. She was diagnosed with a UTI 4 days ago, placed on Bactrim initially, but states that she was called 2 days ago with culture results and switch to Cipro. She states she started taking the Cipro yesterday and has had 3 doses total. States that she has been feeling very fatigued and rundown, states "I feel like I have been run over by a truck. I have been bedridden for the past 4 days." She has still been having intermittent fevers and chills. She states that her right flank pain has been getting progressively worse. She denies headaches, vision changes, neck pain or stiffness, chest pain, shortness of breath, dizziness or syncope, vomiting, diarrhea, or unusual rash. REVIEW OF SYSTEMS: A complete 10 point review of systems was reviewed with the patient with pertinent positives and negatives as per history of present illness. All else were negative. PAST MEDICAL HISTORY: Reviewed in chart, see problem list below. SOCIAL HISTORY: Lives at home. She is a current everyday smoker. ALLERGIES: Reviewed in chart, see below. PHYSICAL EXAM: CONSTITUTIONAL: Pleasant and cooperative. No acute distress, but appears uncomfortable and in pain. Tearful during exam. Mildly dehydrated, but otherwise well appearing and well nourished. HEENT: Normocephalic, atraumatic. Pupils equal, round and reactive to light, EOMI. TMs normal. Pharynx normal. Tacky mucous membranes. NECK: Supple, full active range of motion without discomfort. RESPIRATORY: Clear to auscultation bilaterally with no wheezing, crackles, rhonchi or stridor. Equal expansion bilaterally. CARDIOVASCULAR: Regular rate and rhythm with no murmurs, rubs or gallops. Normal peripheral perfusion. No edema. GASTROINTESTINAL: Moderate tenderness of the right flank to palpation. The abdomen is soft and nondistended. No palpable masses or HSM. Bowel sounds present in all quadrants. Right CVA tenderness to percussion. MUSCULOSKELETAL: Full range of motion of all joints without discomfort. INTEGUMENTARY: No rash or other significant dermatologic conditions noted. NEUROLOGIC: Alert and oriented X 4 with normal affect. Normal strength and sensation in all 4 extremities. No focal neurologic deficits noted. Normal speech. Normal gait observed. ED COURSE AND MEDICAL DECISION MAKING: CC: Patient presenting with complaint of right flank pain, fevers, body aches DIFFERENTIAL DIAGNOSIS: Includes, but not limited to UTI, pyelonephritis, ureteral stone, infected stone, dehydration, acute kidney injury, electrolyte abnormality, bacteremia/sepsis, among others. INTERPRETATION OF LABS: Leukocytosis with left shift, no anemia, normal platelets, no significant electrolyte abnormalities, normal renal function, normal liver enzymes. Lactic acid within normal limits. UA consistent with UTI , but appears improved from previous UA. Urine negative. IMAGING: ABD/PELVIS NO IV OR ORAL CONT CT DOSE: 424.13 mGy.cm HISTORY: right flank pain, UTI, eval infected stone, pyelo TECHNIQUE: Multiaxial CT images of the abdomen and pelvis were performed without contrast. A dose lowering technique was utilized adhering to the principles of ALARA. COMPARISON STUDY: None. FINDINGS: Lung bases are clear. Liver spleen and pancreas appear unremarkable. Kidneys are considered negative for hydronephrosis. Right kidney demonstrates a mild perinephric fat stranding and or infiltrative change suggesting potential pyelonephritis. No evidence for abscess or collection. Nonobstructive bowel pattern. 3 cm left ovarian cysts similar compared to the prior study. Mild fecal impaction. IMPRESSION: 1. Findings suspect for right renal pyelonephritis. 2. Mild/moderate perinephric fat stranding. 3. No evidence for abscess or collection. 4. Left ovarian cyst unchanged. 5. Nonobstructive bowel pattern. MEDICATION RECONCILIATION: I attest that I have personally reviewed the patient 's current medication list. INITIAL VITAL SIGNS REVIEW: I reviewed the patient's initial vital signs and interpret them as follows: T: Afebrile; BP: Normotensive; HR: Tachycardic; RR : Within normal limits; Pulse Ox: Within normal limits on room air. Blood pressure screening: The patient was found to have normal blood pressure on screening and does not require follow-up for repeat blood pressure check. SUMMARY: Patient was evaluated at bedside, history and physical exam performed. Patient is alert and oriented, in no acute distress, sitting in the exam room. She does appear uncomfortable and does become tearful on exam. She is very tender in the right flank and right CVA to palpation/percussion. Orders were placed at bedside for labs, UA, blood cultures 2, lactic acid, IV fluids for hydration, IV Toradol and PO Tylenol for pain, CT abdomen/pelvis noncontrast to evaluate for ureteral stone/pyelonephritis. IV Rocephin ordered for additional coverage of UTI/pyelonephritis. Patient discussed with Dr. Mclaughlin, who agrees with my assessment and plan. Labs and imaging reviewed as above. Notable for leukocytosis and UA consistent with UTI, CT findings consistent with a right-sided pyelonephritis. Nursing staff notified me that patient seems very anxious, pacing in the room, complaining about her IV. I did spend several minutes at bedside talking with the patient, she is tearful , but denies any complaints of anxiety and denies any other concerns at this time. Urine drug screen was added to evaluate for possible substance abuse, this was reviewed and is positive for marijuana and amphetamine use. Patient reassessed multiple times throughout ED stay, she has remained stable, tachycardia improving with IV fluids, and appears more comfortable after pain medications. Patient is still very uncomfortable on repeat exam of the right flank, and given her persistent symptoms after several days of antibiotics, I do feel that she may benefit from admission. I spoke on the phone with Dr. Ho, [facility] hospitalist, who agrees to evaluate the patient for admission. Patient was updated on all results and plan for admission, she verbalized understanding and was agreeable to this plan. Patient was stable at time of admission. Problem List Medical Problems: (1) Antisocial personality disorder Status: Chronic (2) Bipolar disorder Status: Chronic (3) Cannabis abuse Status: Chronic (4) Chronic back pain Status: Chronic (5) Depression Status: Chronic (6) Hysterectomy Status: Resolved (7) Nicotine abuse Status: Chronic (8) orthopedic surgery Status: Resolved (9) Seizure Status: Chronic (10) Seizure disorder Status: Chronic Current/Historical Medications Scheduled Ciprofloxacin Hcl (Cipro), 500 MG PO BID Allergies Coded Allergies: Codeine (Verified Allergy, Severe, COULDN'T BREATHE, FINGERS SWELL, ) 01/20/13: has percocet in past without problem Vital Signs Date Time Temp Pulse Resp B/P (MAP) Pulse Ox O2 Delivery O2 Flow Rate FiO2 02/15/18 18:39 92 20 137/92 99 Room Air 02/15/18 16:35 97 02/15/18 15:44 37.5 111 17 115/76 98 Room Air Laboratory Results 02/15/18 16:31 Red Blood Count 4.30, Mean Corpuscular Volume 88.6, Mean Corpuscular Hemoglobin 29.3, Mean Corpuscular Hemoglobin Concent 33.1, Mean Platelet Volume 11.2, Neutrophils (%) (Auto) 77.0, Lymphocytes (%) (Auto) 12.1, Monocytes (%) (Auto) 9.8, Eosinophils (%) (Auto) 0.7, Basophils (%) (Auto) 0.1, Neutrophils # (Auto) 9.49, Lymphocytes # (Auto) 1.49, Monocytes # (Auto) 1.21, Eosinophils # (Auto) 0.09, Basophils # (Auto) 0.01 02/15/18 16:31 Test 02/15/18 16:26 02/15/18 16:30 02/15/18 16:31 Urine Color DK YELLOW Urine Appearance CLEAR (CLEAR) Urine pH 6.5 (4.5-7.5) Urine Specific [place] 1.022 (1.000-1.030) Urine Protein 1+ (NEG) Urine Glucose (UA) NEG (NEG) Urine Ketones TRACE (NEG) Urine Occult Blood TRACE (NEG) Urine Nitrite NEG (NEG) Urine Bilirubin NEG (NEG) Urine Urobilinogen POS (NEG) Urine Leukocyte Esterase SMALL (NEG) Urine WBC (Auto) 10-30 /hpf (0-5) Urine RBC (Auto) 5-10 /hpf (0-4) Urine Hyaline Casts (Auto) 1-5 /lpf (0-5) Urine Epithelial Cells (Auto) >30 /lpf (0-5) Urine Bacteria (Auto) NEG (NEG) Urine Test NEG (NEG) Urine Opiates Screen NEG (NEG) Urine Methadone, Qualitative NEG (NEG) Urine Barbiturates NEG (NEG) Urine Phencyclidine (PCP) Level NEG (NEG) Ur Amphetamine/Methamphetamine POS (NEG) MDMA (Ecstasy) Screen NEG (NEG) Urine Benzodiazepines Screen NEG (NEG) Urine Cocaine Metabolite NEG (NEG) Urine Marijuana (THC) POS (NEG) White Blood Count 12.33 K/uL (4.8-10.8) Red Blood Count 4.30 M/uL (4.2-5.4) Hemoglobin 12.6 g/dL (12.0-16.0) Hematocrit 38.1 % (37-47) Mean Corpuscular Volume 88.6 fL (80-100) Mean Corpuscular Hemoglobin 29.3 pg (25-34) Mean Corpuscular Hemoglobin Concent 33.1 g/dl (32-36) Platelet Count 133 K/uL (130-400) Mean Platelet Volume 11.2 fL (7.4-10.4) Neutrophils (%) (Auto) 77.0 % Lymphocytes (%) (Auto) 12.1 % Monocytes (%) (Auto) 9.8 % Eosinophils (%) (Auto) 0.7 % Basophils (%) (Auto) 0.1 % Neutrophils # (Auto) 9.49 K/uL (1.4-6.5) Lymphocytes # (Auto) 1.49 K/uL (1.2-3.4) Monocytes # (Auto) 1.21 K/uL (0.11-0.59) Eosinophils # (Auto) 0.09 K/uL (0-0.5) Basophils # (Auto) 0.01 K/uL (0-0.2) RDW Standard Deviation 43.3 fL (36.4-46.3) RDW Coefficient of Variation 13.2 % (11.5-14.5) Immature Granulocyte % (Auto) 0.3 % Immature Granulocyte # (Auto) 0.04 K/uL (0.00-0.02) Anion Gap 6.0 mmol/L (3-11) Est Creatinine Clear Calc Drug Dose 117.1 ml/min Estimated GFR () 112.4 Estimated GFR (Non- 97.0 BUN/Creatinine Ratio 17.3 (10-20) Lactic Acid Level 1.4 mmol/L (0.4-2.0) Calcium Level 8.7 mg/dl (8.5-10.1) Total Bilirubin 0.4 mg/dl (0.2-1) Aspartate Amino Transf (AST/SGOT) 21 U/L (15-37) Alanine Aminotransferase (ALT/SGPT) 19 U/L (12-78) Alkaline Phosphatase 78 U/L (45-117) Total Protein 7.7 gm/dl (6.4-8.2) Albumin 3.2 gm/dl (3.4-5.0) Globulin 4.5 gm/dl (2.5-4.0) Albumin/Globulin Ratio 0.7 (0.9-2) Medications Administered Medications (Trade) Dose Ordered Sig/[place] Route Start Time Stop Time Status Last Admin Dose Admin Sodium Chloride 1,000 ml @ 999 mls/hr Q1H1M STAT IV 02/15/18 15:53 02/15/18 16:53 DC 02/15/18 17:07 999 MLS/HR Ketorolac Tromethamine (Toradol Inj) 15 mg NOW STAT IV 02/15/18 15:53 02/15/18 15:56 DC 02/15/18 16:57 15 MG Acetaminophen (Tylenol Tab) 1,000 mg NOW STAT PO 02/15/18 15:53 02/15/18 15:56 DC 02/15/18 17:07 1,000 MG Ceftriaxone Sodium (Rocephin Inj) 1 gm NOW STAT IV 02/15/18 15:56 02/15/18 15:57 DC 02/15/18 17:07 1 GM Buprenorphine/ Naloxone (Suboxone Tab) 1 tab 1902 ONCE PO 02/15/18 19:02 02/15/18 20:03 DC 02/15/18 20:26 1 TAB Departure Information Impression Primary Impression: Pyelonephritis Referrals No Doctor, Assigned (PCP) Patient Instructions [facility]
[2018-02-15 16:56] LABS: BASO % 0.1 %; BASO ABS # 0.01 K/uL (0-0.2); EOS % 0.7 %; EOS ABS # 0.09 K/uL (0-0.5); HEMATOCRIT 38.1 % (37-47); HEMOGLOBIN 12.6 g/dL (12.0-16.0); IG# 0.04 K/uL (0.00-0.02); LYMPH % 12.1 %; LYMPH ABS # 1.49 K/uL (1.2-3.4); MEAN CELL VOLUME 88.6 fL (80-100); MEAN CORPUSCULAR HEMOGLOBIN 29.3 pg (25-34); MEAN CORPUSCULAR HGB CONC 33.1 g/dl (32-36); MEAN PLATELET VOLUME 11.2 fL (7.4-10.4); MONO % 9.8 %; MONO ABS # 1.21 K/uL (0.11-0.59); NEUT ABS # 9.49 K/uL (1.4-6.5); PLATELET COUNT 133 K/uL (130-400); RED CELL DISTRIBUTION WIDTH CV 13.2 % (11.5-14.5); RED CELL DISTRIBUTION WIDTH SD 43.3 fL (36.4-46.3); WHITE BLOOD COUNT 12.33 K/uL (4.8-10.8)
[2018-02-15 17:07] LABS: ALBUMIN 3.2 gm/dl (3.4-5.0); CALCIUM 8.7 mg/dl (8.5-10.1); CREATININE 0.79 mg/dl (0.60-1.20); POTASSIUM 3.5 mmol/L (3.5-5.1); TOTAL PROTEIN 7.7 gm/dl (6.4-8.2)
--- NOTE | 2018-02-15 17:10 | DIAGNOSTIC IMAGING REPORT ---
ABD/PELVIS NO IV OR ORAL CONT CT DOSE: 424.13 mGy.cm HISTORY: right flank pain, UTI, eval infected stone, pyelo TECHNIQUE: Multiaxial CT images of the abdomen and pelvis were performed without contrast. A dose lowering technique was utilized adhering to the principles of ALARA. COMPARISON STUDY: None. FINDINGS: Lung bases are clear. Liver spleen and pancreas appear unremarkable. Kidneys are considered negative for hydronephrosis. Right kidney demonstrates a mild perinephric fat stranding and or infiltrative change suggesting potential pyelonephritis. No evidence for abscess or collection. Nonobstructive bowel pattern. 3 cm left ovarian cysts similar compared to the prior study. Mild fecal impaction. IMPRESSION: 1. Findings suspect for right renal pyelonephritis. 2. Mild/moderate perinephric fat stranding. 3. No evidence for abscess or collection. 4. Left ovarian cyst unchanged. 5. Nonobstructive bowel pattern. The above report was generated using voice recognition software. It may contain grammatical, syntax or spelling errors. Electronically signed by: Rory Bowman M.D. 02/15/2018 5:08 PM Dictated Date/Time: 02/15/2018 5:05 PM
[2018-02-15] MEDS ORDERED: BUPRENORPHINE/NALOXONE 2/0.5MG 1 TAB PO ONE (19:02)
[2018-02-15] MEDS ORDERED: MAGNESIUM HYDROXIDE SUSP 30 ML UDC PO PRN (19:15)
[2018-02-15] MEDS ORDERED: ONDANSETRON INJ 2 MG/ML 2 ML VIAL IV PRN (19:15)
[2018-02-15] MEDS ORDERED: ACETAMINOPHEN 325 MG TAB PO PRN (19:15)
[2018-02-15] MEDS ORDERED: NICOTINE 7 MG/24 HR TDSY TD PRN (19:15)
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
[2018-02-15 20:16] VITALS: BP 118/79; PULSE 99; TEMP 36.8; O2SAT 98; Ht 177.8 cm; Wt 83.0 kg
[2018-02-15] MEDS: SODIUM CHLORIDE 0.9% 1000ML 1,000 ML IV SCH (20:25)
[2018-02-15 23:44] VITALS: BP 116/74; PULSE 107; TEMP 36.5; O2SAT 99
[2018-02-16] MEDS: SODIUM CHLORIDE 0.9% 1000ML 1,000 ML IV SCH (06:48)
[2018-02-16 07:20] VITALS: BP 114/75; PULSE 104; TEMP 36.4; O2SAT 100
[2018-02-16] MEDS ORDERED: BUPRENORPHINE/NALOXONE 2/0.5MG 1 TAB PO SCH (08:00)
[2018-02-16 08:25] LABS: BASO % 0.1 %; BASO ABS # 0.01 K/uL (0-0.2); EOS % 1.3 %; HEMATOCRIT 34.9 % (37-47); HEMOGLOBIN 11.6 g/dL (12.0-16.0); IG# 0.01 K/uL (0.00-0.02); LYMPH % 23.2 %; LYMPH ABS # 1.74 K/uL (1.2-3.4); MEAN CELL VOLUME 87.9 fL (80-100); MEAN CORPUSCULAR HEMOGLOBIN 29.2 pg (25-34); MEAN CORPUSCULAR HGB CONC 33.2 g/dl (32-36); MEAN PLATELET VOLUME 11.6 fL (7.4-10.4); MONO % 10.7 %; NEUT % 64.6 %; NEUT ABS # 4.85 K/uL (1.4-6.5); PLATELET COUNT 140 K/uL (130-400); RED CELL DISTRIBUTION WIDTH CV 13.2 % (11.5-14.5); RED CELL DISTRIBUTION WIDTH SD 42.5 fL (36.4-46.3); WHITE BLOOD COUNT 7.51 K/uL (4.8-10.8)
[2018-02-16 08:51] LABS: CALCIUM 8.6 mg/dl (8.5-10.1); CREATININE 0.66 mg/dl (0.60-1.20); POTASSIUM 3.3 mmol/L (3.5-5.1)
[2018-02-16] MEDS ORDERED: POTASSIUM CHLORIDE 10 MEQ TABCR PO STA (09:15)
[2018-02-16] MEDS ORDERED: KETOROLAC TROMETHAMINE 15 MG/ML VIAL IV. PRN (11:15)
[2018-02-16] MEDS ORDERED: NURSING VERBAL MED ORDER ONE (11:15)
[2018-02-16] MEDS ORDERED: IBUPROFEN 600 MG TAB PO PRN (14:00)
--- NOTE | 2018-02-16 15:22 | DIAGNOSTIC IMAGING REPORT ---
ULTRASOUND VENOUS DOPPLER LWR EXT BILA CLINICAL HISTORY: Bilateral lower extremity edema COMPARISON STUDY: No previous studies for comparison. FINDINGS: Real-time and color flow Doppler imaging were performed. Flow was seen within the femoral, popliteal and calf veins with no intraluminal thrombus demonstrated. The saphenous vein is patent. IMPRESSION: No evidence of lower extremity DVT. Electronically signed by: Emory Lambert M.D. 02/16/2018 3:21 PM Dictated Date/Time: 02/16/2018 3:20 PM
[2018-02-16] MEDS ORDERED: CEFTRIAXONE SOD INJ 1 GM in DEXTROSE 5% ADD-VANTAGE 50ML 50 ML IV SCH (16:00)
[2018-02-16] MEDS ORDERED: BUPR2MIS PO (16:04)
[2018-02-16] MEDS ORDERED: ACET-1047 PO (16:04)
[2018-02-16] MEDS ORDERED: MTR600X PO (16:04)
[2018-02-16] MEDS ORDERED: NICO7DIS7 TD (16:04)
--- NOTE | 2018-02-16 16:06 | Discharge Instructions ---
Discharge Instructions Date of Service Feb 16, 2018. Admission Reason for Admission: Pyelonephritis Discharge Discharge Diagnosis / Problem: Acute pyelonephritis Discharge Goals Goal(s): Improve disease control, Diagnostic testing, Therapeutic intervention Activity Recommendations Activity Limitations: as noted below Exercise/Sports Limitations: gradually increase as tolerated Shower/Bathe: no limitations Driving or Machine Use: no limitations . Instructions / Follow-Up Instructions / Follow-Up Please finish out the antibiotics you already have at home (Cipro) 5 more days. This is for your kidney infection. You should follow-up with your family doctor within 1 week after discharge. You can take ibuprofen 600 mg every 6 hours as needed for back pain. Of note, you were found to have a 3 cm left ovarian cyst-please follow-up routinely with your software tools build engineer on this. Current Hospital Diet Patient's current hospital diet: Regular Diet Discharge Diet Recommended Diet: Regular Diet Procedures Procedures Performed: CT abdomen/pelvis Bilateral lower extremity Doppler ultrasound-negative for DVT (blood clot) Pending Studies Studies pending at discharge: yes List of pending studies: Final blood culture results Medical Emergencies . Who to Call and When: Medical Emergencies: If at any time you feel your situation is an emergency, please call 911 immediately. . Non-Emergent Contact Non-Emergency issues call your: Primary Care Provider Call Non-Emergent contact if: temperature is above 101, your pain is not controlled, your pain is worsening, your pain is unusual for you, your pain is concerning you, you have any medication questions . . "Provider Documentation" section prepared by Bertha Hunt. .
[2018-02-16 17:58] VITALS: BP 114/75; PULSE 104; TEMP 36.4; O2SAT 100
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
== END 2018-02-16 18:15 | disposition home or self-care (01) | DRG 690 ==
LOC: C.EDB 15:42 → C.MS4W 19:05 → EEVIPCON 19:05 → ENRESERV 19:22 → C.4E 02-16 14:00
PROVIDERS: ADMIT Family Medicine; ATTEND Family Medicine
DX: N10 Acute pyelonephritis (principal); F15.20 Other stimulant dependence, uncomplicated; F11.20 Opioid dependence, uncomplicated; F17.210 Nicotine dependence, cigarettes, uncomplicated; F60.2 Antisocial personality disorder; B96.20 Unspecified Escherichia coli [E. coli] as the cause of diseases classified elsewhere; Z79.899 Other long term (current) drug therapy; G40.909 Epilepsy, unspecified, not intractable, without status epilepticus; F31.9 Bipolar disorder, unspecified; N83.202 Unspecified ovarian cyst, left side